=== PATIENT | female | born 1965 | race Caucasian/White ===

== ENCOUNTER 2023-01-19 13:02 | Outpatient (AMB) | payer OTHER, SELFPAY ==
--- NOTE | 2023-01-19 13:06 | A.OFFVIS_ITS ---
Intake Vital Signs 01/19/23 13:07 Height 5 ft 5 in Weight 145 lb BMI 24.1 BP 135/85 Blood Pressure Location Lt brachial Position Sitting Respiration 14 Pulse 101 H Pulse Source Pulse Oximeter Intake Visit Reasons: RIGHT SHOULDER PAIN Intake Note: Pt has been doing PT since October with some relief. She had a shoulder xray at [facility], will try to obtain Allergies No Known Allergies Allergy (Verified 01/19/23 13:08) Medication List - Last Reconciled 01/19/23 by Yanelis Newman LPN citalopram 20 mg PO DAILY clonazepam 0.5 mg PO BID PRN gabapentin 600 mg PO BID methocarbamol 750 - 1,500 mg PO BID PRN HPI RIGHT SHOULDER PAIN HPI Details Patient is a 57 years old female presents today for initial evaluation right shoulder and periscapular pain. Denies any past or recent trauma, injury or falls. 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 She has modified her work ergonomics and has utilized sitting and standing desk, completed physical and chiropractic courses, acupunture with cupping, massage, TENS unit (in remote past), gabapentin, methocarbamol without significant improvement in her symptoms. She is right side sleeper, reports waking up in the morning with paresthesias, cold and numb sensations in her right upper extremity which self-resolves with stretches and arm roller exercises. Pain interferes with her daily activities and functions and is worst while working on compute with pain intensity at 9/10 and average daily pain intensity at 7/10. Patient reports she does not have pain while mowing lawn or exercising. She had cervical and right shoulder xray at [facility] which showed cervical degenerative disc disease and arthritis. These reports are not available today for review. She is currently at physical therapy with mild symptom improvement in shoulder area but is interested to undergo interventional treatments for right periscapular pain. Location Right shoulder pain, periscapular and scapula areas Duration Chronic since early Characteristics of symptom or complaint Aching, tinlging, numb (RUE), Aggravating or associated factors Movements, working on computer Relieving factors Accupunture and cupping therapy 2x/weeks, TENS unit in past Treatment Currently at PT, Chiropractor Review of Systems Const All systems reviewed & are unremarkable except as noted in HPI and below Denies body aches, Denies chills, Denies fever(s), Denies frequent falls, Denies headache(s), Denies malaise, Denies night sweats and Denies weight loss ENT Denies headache(s) and Reports neck pain Musc Reports as per HPI, Denies back pain, Reports arthralgias, Denies limited range of motion, Reports neck pain, Reports numbness, Reports radiating pain into limb, Reports stiffness and Reports tingling Neuro Denies frequent falls, Denies headache(s), Reports numbness and Reports tingling Physical Exam Vital Signs: Last Vital Signs Pulse 101 H 01/19/23 13:07 Resp 14 01/19/23 13:07 BP 135/85 01/19/23 13:07 BMI result Body Mass Index 24.1 General: Appears afebrile. Alert and oriented. Mood and affect appropriate. Follows and participates in conversation appropriately. Respiratory effort is unlabored. No cough. Able to transition from sit to stand unassisted. Ambulates with bilaterally normal heel strike and toe off. Neck Neck: Yes normal visual inspection, Yes full ROM, Yes no lymphadenopathy, Yes supple, No anterior neck swelling, No torticollis, Yes no JVD, No prominent supraclavicular fat pad and No prominent dorsocervical fat pad Back/Spine/Pelvis Cervical Spine: cervical ROM normal, No collar present, cervical muscular tenderness, pain with cervical ROM, No Cervical spine tenderness and No step off deformity Thoracic/Lumbar Spine: thoracic and lumbar spine normal to inspection, No Thoracic/lumbar spine scar(s), No kyphosis, paraspinal muscle tenderness on the right (periscapular and midscapular areas) in the mid thoracic, No Thoracic/lumbar scoliosis, No thoracic spinal tenderness and No lumbar spinal tenderness Extrem General: Yes capillary refill normal, Yes no clubbing, cyanosis or edema and Yes no calf tenderness Right upper extremity: shoulder/upper arm Details: normal to inspection, tenderness and normal ROM; no swelling, no ecchymosis, no crepitus and no unusual warmth Assessment & Plan Assessment & Plan (1) Degenerative disc disease, cervical: Code(s): M50.30 - Other cervical disc degeneration, unspecified cervical region (2) Muscle spasm: Code(s): M62.838 - Other muscle spasm (3) Cervical spondylosis: Code(s): M47.812 - Spondylosis without myelopathy or radiculopathy, cervical region (4) Chronic periscapular pain: Code(s): M25.519 - Pain in unspecified shoulder; G89.29 - Other chronic pain (5) Right shoulder pain: Code(s): M25.511 - Pain in right shoulder Plan 1. Will send request to [facility] for previous imaging of cervical spine and right shoulder for review prior to treatments. 2. Script for TENS unit provided at patient's request via [employer]. Informational pamphlets given to patient. 3. Tentatively plan for Diagnostic Right C6-C7-T1 MBB nerve blocks with local and fluoroscopy for mid scapular pain. Expectations, risks and benefits were reviewed. Patient is aware she will be contacted to schedule this procedure. 4. Continue PT and HEP. Encouraged good posture, adequate hydration, alternating between sitting and standing desk at work, stretching exercises and stress reduction. All questions were answered and patient is in agreement of plan. Follow-up after injections and sooner as needed. Coding Level of Care Code New Pt Level 4 (61860) Diagnoses Degenerative disc disease, cervical M50.30 Muscle spasm M62.838 Cervical spondylosis M47.812 Chronic periscapular pain M25.519; G89.29 Right shoulder pain M25.511
[2023-01-19 13:07] VITALS: BP 135/85; PULSE 101; RESP 14; BMI 24.1
== END 2023-01-19 13:39 | disposition home or self-care (01) ==
PROVIDERS: PCP Internal Medicine; Visit Provider Nurse Practitioner Family
DX: M50.30 Other cervical disc degeneration, unspecified cervical region (principal); M62.838 Other muscle spasm; M47.812 Spondylosis without myelopathy or radiculopathy, cervical region; M25.519 Pain in unspecified shoulder; G89.29 Other chronic pain; M25.511 Pain in right shoulder
CPT/HCPCS: 99204

== ENCOUNTER → 2023-01-19 13:02 | Outpatient (BNVA) | payer OTHER, SELFPAY | PROVIDERS: PCP Internal Medicine; Visit Provider Nurse Practitioner Family ==

== ENCOUNTER 2023-03-24 05:55 | Outpatient (REF) | payer OTHER, SELFPAY ==
--- NOTE | ~2023-03-24 | FL_ITS ---
EXAMINATION: XR FLUOROSCOPY WITH IMAGES CLINICAL INFORMATION: Spondylosis without myelopathy or radiculopathy, cervical region. COMPARISON: None available. TECHNIQUE: Fluoroscopy Supervised By: Dr. Darren Oliva. Fluoroscopy Time: 0.3 minutes. Cumulative Dose: 4.88 mGy. DAP: 0.485 Gycm2. Images: 4. FINDINGS: Images demonstrate needle placement and contrast injection over 3 consecutive right posterior lateral cervical vertebral bodies FL/FL guidance in treatment room IMPRESSION: Fluoroscopy guidance for pain management procedure
== END 2023-03-24 05:56 | disposition home or self-care (01) ==
LOC: CF 05:55
PROVIDERS: Visit Provider Internal Medicine
DX: M47.812 Spondylosis without myelopathy or radiculopathy, cervical region (principal)
CPT/HCPCS: 64490; 64491

== ENCOUNTER 2023-03-24 07:55 | Outpatient (AMB) | payer OTHER, SELFPAY ==
[2023-03-24 08:02] VITALS: BP 122/78; PULSE 88; RESP 14; O2SAT 99
--- NOTE | 2023-03-24 08:02 | A.OFFVIS_ITS ---
Intake Vital Signs 03/24/23 08:02 03/24/23 09:02 BP 122/78 138/70 Blood Pressure Location Rt brachial Rt brachial Position Sitting Sitting Respiration 14 14 Pulse 88 88 Pulse Source Pulse Oximeter Pulse Oximeter Pulse Oximetry (%) 99 99 Oxygen Delivery Method Room Air Room Air Intake Visit Reasons: Right Dx C6-C7-T1 MBB Allergies No Known Allergies Allergy (Verified 03/24/23 08:03) HPI Right Dx C6-C7-T1 MBB HPI Details Patient presents for scheduled procedure. Denies any recent cough, cold, infection, fever or other significant changes in medical history since last office visit. Physical Exam Vital Signs: Last Vital Signs Pulse 88 03/24/23 08:02 Resp 14 03/24/23 08:02 BP 122/78 03/24/23 08:02 Pulse Ox 99 03/24/23 08:02 Oxygen Delivery Method Room Air 03/24/23 08:02 Office Procedures Cervical/Thoracic Facet Inj Details: Diagnostic Cervical Medial Branch Block, Right C5, C6, C7 medial branches After obtaining written consent, pre-procedure blood pressure and pulse were recorded and are in the nursing record for review. The patient was placed in a p elton position. The respective cervical area was prepped with chloraprep and draped in sterile fashion. The skin over the target medial branch nerves was anesthetized with 0.5% lidocaine. A 22 gauge 3.5 inch needle was inserted into the target medial branch nerve under fluoroscopic guidance under AP and lateral views for the C5 and C6 branches. AP and MIKEY views were utilized for the C7 branch. No paresthesias were elicited with needle placement and aspiration was negative for blood and CSF. Next, 0.2cc of omnipaque 180 was injected to verify positioning. Next 0.5 ml 0.5% ropivicaine was injected (0.5 cc total per level). The skin was cleansed and a sterile bandage was applied. Following the procedure the patient's vital signs were stable. The patient tolerated the procedure well and no complications were encountered. Following the procedure the patient's vital signs were stable. The patient was discharged home in good condition with post-procedural instructions. Time Out: Immediately prior to the procedure, the following was verbally confirmed that there is a signed consent form and that the correct patient, planned procedure, site and side are consistent with documentation and that necessary equipment and/or blood products are available prior to the start of the case. Complications: none EBL: <5 cc 12659 - second level, with Fluoroscopy Procedure code (CPT) selection complete Assessment & Plan Assessment & Plan (1) Cervical spondylosis: Code(s): M47.812 - Spondylosis without myelopathy or radiculopathy, cervical region Plan Patient is status post right C5, C6, C7 diagnostic MBBs. Patient tolerated procedure well and was discharged home in stable condition with discharge instructions. All questions were answered. We will follow-up via telephone or in clinic to assess response to therapy. A follow-up appointment was made during today's visit. If no response to diagnostic injection, consider C-spine MRI and T-spine Xray. Orders: Orders FL guidance in treatment room Today M47.812 - Spondylosis without myelopathy or radiculopathy, cervical region Coding Level of Care Code Procedure Only Diagnoses Cervical spondylosis M47.812 CPT Codes Facet Injection Cervical/Thoracic - CPT: 77827 - second level, with Fluoroscopy ([id number])
[2023-03-24 09:02] VITALS: BP 138/70; PULSE 88; RESP 14; O2SAT 99
== END 2023-03-24 08:59 | disposition home or self-care (01) ==
LOC: HO.PMCPRC 07:55
PROVIDERS: PCP Internal Medicine; Visit Provider Internal Medicine
DX: M47.812 Spondylosis without myelopathy or radiculopathy, cervical region (principal)
CPT/HCPCS: 64490; 64491

== ENCOUNTER 2023-03-26 08:33 | Outpatient (AMB) | payer OTHER, SELFPAY ==
--- NOTE | 2023-03-26 08:34 | A.OFFVIS_ITS ---
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 Oliva. Patient reports 100% ongoing pain relief since procedure with significant improvement in her movements, functioning, sleep, work, mood and quality of life. Patient reports having a very good day yesterday and content for not having pain, especially during her work on computer. Patient is interested to proceed with therapeutic cervical medial branch blocks as next steps and consider Sprint PNS trial as a back up option. She is not interested in RFA at this time. Denies any recent cough, cold, infection, fever, rash, swelling, red ness, injection site tenderness, erythema or bleeding or other significant changes in medical history since last office visit. Past Procedures: 03/24/23: Right Diagnostic C5-C6-C7 MBBs -100% pain relief for 36 hours PRIOR: Patient is a 57 years old female presents today for initial evaluation right shoulder and periscapular pain. Denies any past or recent trauma, injury or falls. 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 She has modified her work ergonomics and has utilized sitting and standing desk, completed physical and chiropractic courses, acupunture with cupping, massage, TENS unit (in remote past), gabapentin, methocarbamol without significant improvement in her symptoms. She is right side sleeper, reports waking up in the morning with paresthesias, cold and numb sensations in her right upper extremity which self-resolves with stretches and arm roller exercises. Pain interferes with her daily activities and functions and is worst while working on compute with pain intensity at 9/10 and average daily pain intensity at 7/10. Patient reports she does not have pain while mowing lawn or exercising. She had cervical and right shoulder xray at [facility] which showed cervical degenerative disc disease and arthritis. These reports are not available today for review. She is currently at physical therapy with mild symptom improvement in shoulder area but is interested to undergo interventional treatments for right periscapular pain. Location Right shoulder pain, periscapular and scapula areas Duration Chronic since early Characteristics of symptom or complaint Aching, tingling, numb (RUE), Aggravating or associated factors Movements, working on computer Relieving factors Acupuncture and cupping therapy 2x/weeks, TENS unit in past Treatment Currently at PT, Chiropractor Review of Systems Const All systems reviewed & are unremarkable except as noted in HPI and below Physical Exam General: Appears afebrile. Alert and oriented. Mood and affect appropriate. Follows and participates in conversation appropriately. Respiratory effort is unlabored. No cough. Able to transition from sit to stand unassisted. Ambulates with bilaterally normal heel strike and toe off. Neck Neck: Yes normal visual inspection, Yes full ROM, Yes no lymphadenopathy, Yes supple, No anterior neck swelling and Yes no JVD Results Reviewed Results Reviewed: No imaging reports are available for review. Assessment & Plan Assessment & Plan (1) Cervical spondylosis: Code(s): M47.812 - Spondylosis without myelopathy or radiculopathy, cervical region (2) Degenerative disc disease, cervical: Code(s): M50.30 - Other cervical disc degeneration, unspecified cervical region Plan Patient is status post right C5, C6, C7 diagnostic MBBs on 03/24/23 with ongoing 100% pain relief with improved functioning, sleep, work, mood and quality of life. Patient is interested to proceed with therapeutic cervical medial branch blocks as next steps and consider Sprint PNS trial as a back up option. She is not interested in RFA at this time. Schedule Right Therapeutic C5-C6-C7 MBB with local and fluoroscopy and oral Ativan per patient's request. Expectations, risks and benefits were reviewed. Patient is aware she will be contacted to schedule this procedure. All q uestions were answered and the patient is in agreement of plan. Follow-up after injections and sooner as needed. Coding Level of Care Code Est Pt Level 3 (01540) Diagnoses Cervical spondylosis M47.812 Degenerative disc disease, cervical M50.30
[2023-03-26 08:37] VITALS: BP 142/82; PULSE 91; O2SAT 97; BMI 24.1
== END 2023-03-26 08:43 | disposition home or self-care (01) ==
PROVIDERS: PCP Internal Medicine; Visit Provider Nurse Practitioner Family
DX: M47.812 Spondylosis without myelopathy or radiculopathy, cervical region (principal); M50.30 Other cervical disc degeneration, unspecified cervical region
CPT/HCPCS: 99213

== ENCOUNTER → 2023-03-26 08:33 | Outpatient (BNVA) | payer OTHER, SELFPAY | PROVIDERS: PCP Internal Medicine; Visit Provider Nurse Practitioner Family ==

== ENCOUNTER 2023-05-05 05:58 | Outpatient (REF) | payer OTHER, SELFPAY ==
--- NOTE | ~2023-05-05 | FL_ITS ---
EXAMINATION: XR FLUOROSCOPY WITH IMAGES CLINICAL INFORMATION: Spondylosis without posterior radiculopathy, cervical region. COMPARISON: None available. TECHNIQUE: Fluoroscopy Supervised By: Dr. Darren Oliva. Fluoroscopy Time: 0.1 minute. Cumulative Dose: 2.09 mGy. DAP: 0.211 Gycm2. Images: 2. FINDINGS: Images demonstrate needle placement and contrast injection adjacent to the right lateral C3, C4 and C5 vertebrae FL/FL guidance in treatment room IMPRESSION: Fluoroscopy guidance for pain management procedure
== END 2023-05-05 05:59 | disposition home or self-care (01) ==
LOC: CF 05:58
PROVIDERS: Visit Provider Internal Medicine
DX: M47.812 Spondylosis without myelopathy or radiculopathy, cervical region (principal)
CPT/HCPCS: 64490; 64491; J1100; J2795; Q9967

== ENCOUNTER 2023-05-05 08:27 | Outpatient (AMB) | payer OTHER, SELFPAY ==
[2023-05-05 08:50] VITALS: BP 122/68; PULSE 60; O2SAT 100; BMI 24.1
--- NOTE | 2023-05-05 08:50 | MHC.OFFVIS ---
Intake Vital Signs 05/05/23 08:50 05/05/23 09:29 Height 5 ft 5 in 5 ft 5 in Weight 145 lb 145 lb BMI 24.1 24.1 BP 122/68 124/70 Blood Pressure Location Lt brachial Lt brachial Position Sitting Sitting Respiration 16 Pulse 60 101 H Pulse Source Pulse Oximeter Pulse Oximeter Pulse Oximetry (%) 100 99 Oxygen Delivery Method Room Air Room Air Comment Pre-Op Post-op Intake Visit Reasons: right theraputic C5-C6-C7 MBB Allergies No Known Allergies Allergy (Verified 03/26/23 08:37) HPI right theraputic C5-C6-C7 MBB HPI Details Patient presents for scheduled procedure. Denies any recent cough, cold, infection, fever or other significant changes in medical history since last office visit. Physical Exam Vital Signs: Last Vital Signs Pulse 101 H 05/05/23 09:29 Resp 16 05/05/23 09:29 BP 124/70 05/05/23 09:29 Pulse Ox 99 05/05/23 09:29 Oxygen Delivery Method Room Air 05/05/23 09:29 BMI result Body Mass Index 24.1 Office Procedures Cervical/Thoracic Facet Inj Details: Therapeutic Cervical Medial Branch Block, Right C4, C5, C6 medial branches After obtaining written consent, pre-procedure blood pressure and pulse were recorded and are in the nursing record for review. The patient was placed in a lateral position. The respective cervical area was prepped with chloraprep and draped in sterile fashion. The skin over the target medial branch nerves was anesthetized with 0.5% lidocaine. A 25 gauge 1.5 inch needle was inserted into the target medial branch nerve under fluoroscopic guidance. No paresthesias were elicited with needle placement and aspiration was negative for blood and CSF. Next, 0.2cc of omnipaque 180 was injected to verify positioning. Next 0.5 ml 0.5% ropivicaine mixed with 3.3 mg Dexamthesone was injected (0.5 cc total per level). The identical procedure was performed at the remaining levels. The skin was cleansed and a sterile bandage was applied. Following the procedure the patient's vital signs were stable. The patient tolerated the procedure well and no complications were encountered. Following the procedure the patient's vital signs were stable. The patient was discharged home in good condition with post-procedural instructions. Time Out: Immediately prior to the procedure, the following was verbally confirmed that there is a signed consent form and that the correct patient, planned procedure, site and side are consistent with documentation and that necessary equipment and/or blood products are available prior to the start of the case. Complications: none EBL: <5 cc 98722 - second level, with Fluoroscopy Procedure code (CPT) selection complete Assessment & Plan Assessment & Plan (1) Cervical spondylosis: Code(s): M47.812 - Spondylosis without myelopathy or radiculopathy, cervical region Plan Patient is status post C4, C5, C6 therapeutic MBBs. Patient tolerated procedure well and was discharged home in stable condition with discharge instructions. All questions were answered. We will follow-up via telephone or in clinic to assess response to therapy. A follow-up appointment was made during today's visit. Orders: Orders FL guidance in treatment room Today M47.812 - Spondylosis without myelopathy or radiculopathy, cervical region Coding Level of Care Code Procedure Only Diagnoses Cervical spondylosis M47.812 CPT Codes Facet Injection Cervical/Thoracic - CPT: 93971 - second level, with Fluoroscopy ([id number])
[2023-05-05 09:29] VITALS: BP 124/70; PULSE 101; RESP 16; O2SAT 99; BMI 24.1
== END 2023-05-05 09:16 | disposition home or self-care (01) ==
LOC: HO.PMCPRC 08:27
PROVIDERS: PCP Internal Medicine; Visit Provider Internal Medicine
DX: M47.812 Spondylosis without myelopathy or radiculopathy, cervical region (principal)
CPT/HCPCS: 64490; 64491

== ENCOUNTER 2023-06-22 11:22 | Outpatient (AMB) | payer OTHER, SELFPAY ==
--- NOTE | 2023-06-22 11:25 | A.OFFVIS_ITS ---
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 Oliva. Patient reports 90% ongoing pain relief since procedure with significant improvement in her movements, functioning, sleep, work, mood and quality of life. She is considering Sprint PNS trial in September or October and will notify our office. Denies any recent cough, cold, infection, fever, rash, swelling, redness, injection site tenderness, erythema or bleeding or other significant changes in medical history since last office visit. Past Procedures: 05/05/23: Right Therapeutic C5-C6-C7 MBB s-90% ongoing pain relief 03/24/23: Right Diagnostic C5-C6-C7 MBBs -100% pain relief for 36 hours PRIOR: Patient is a 57 years old female presents today for initial evaluation right shoulder and periscapular pain. Denies any past or recent trauma, injury or falls. 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 She has modified her work ergonomics and has utilized sitting and standing desk, completed physical and chiropractic courses, acupunture with cupping, massage, TENS unit (in remote past), gabapentin, methocarbamol without significant improvement in her symptoms. She is right side sleeper, reports waking up in the morning with paresthesias, cold and numb sensations in her right upper extremity which self-resolves with stretches and arm roller exercises. Pain interferes with her daily activities and functions and is worst while working on compute with pain intensity at 9/10 and average daily pain intensity at 7/10. Patient reports she does not have pain while mowing lawn or exercising. She had cervical and right shoulder xray at [facility] which showed cervical degenerative disc disease and arthritis. These reports are not available today for review. She is currently at physical therapy with mild symptom improvement in shoulder area but is interested to undergo interventional treatments for right periscapular pain. Location Right shoulder pain, periscapular and scapula areas Duration Chronic since early Characteristics of symptom or complaint Aching, tingling, numb (RUE), Aggravating or associated factors Movements, working on computer Relieving factors Acupuncture and cupping therapy 2x/weeks, TENS unit in past Treatment Currently at PT, Chiropractor [facility] Medical History Malignant tumor of uterus Right shoulder pain Cervical spondylosis Degenerative disc disease, cervical Surgical History H/O total hysterectomy Review of Systems Const All systems reviewed & are unremarkable except as noted in HPI and below Physical Exam Vital Signs: Last Vital Signs Pulse 95 06/22/23 11:27 BP 147/81 H 06/22/23 11:27 Pulse Ox 96 06/22/23 11:27 Oxygen Delivery Method Room Air 06/22/23 11:27 BMI result Body Mass Index 23.3 General: Appears afebrile. Alert and oriented. Mood and affect appropriate. Follows and participates in conversation appropriately. Respiratory effort is unlabored. No cough. Able to transition from sit to stand unassisted. Ambulates with bilaterally normal heel strike and toe off. Neck Neck: Yes normal visual inspection, Yes full ROM, Yes no lymphadenopathy, Yes supple, No anterior neck swelling and Yes no JVD Back/Spine/Pelvis Cervical Spine: cervical ROM normal, cervical muscular tenderness, No Cervical spine tenderness and No step off deformity Thoracic/Lumbar Spine: thoraco-lumbar ROM normal, No thoracic spinal tenderness and No lumbar spinal tenderness Results Reviewed Results Reviewed: No imaging reports are available for review. Assessment & Plan Assessment & Plan (1) Cervical spondylosis: Code(s): M47.812 - Spondylosis without myelopathy or radiculopathy, cervical region (2) Degenerative disc disease, cervical: Code(s): M50.30 - Other cervical disc degeneration, unspecified cervical region Plan Patient status post C4, C5, C6 therapeutic MBB on 05/05/23 with good results, improved cervical spine ROM, functioning and sleep. Continue daily stretching exercises, good posture, adequate hydration, topical applications, NSAIDs, heat/ice therapy. Consider acupuncture with acupressure and cupping therapies and aqua therapy. Patient is considering Sprint PNS trial in September or October and will notify our office. All questions and concerns have been answered and patient agreed with the plan. Follow up as needed. Coding Level of Care Code Est Pt Level 3 (49879) Diagnoses Cervical spondylosis M47.812 Degenerative disc disease, cervical M50.30
[2023-06-22 11:27] VITALS: BP 147/81; PULSE 95; O2SAT 96; BMI 23.3
== END 2023-06-22 11:47 | disposition home or self-care (01) ==
PROVIDERS: PCP Internal Medicine; Visit Provider Nurse Practitioner Family
DX: M47.812 Spondylosis without myelopathy or radiculopathy, cervical region (principal); M50.30 Other cervical disc degeneration, unspecified cervical region
CPT/HCPCS: 99213

== ENCOUNTER → 2023-06-22 11:22 | Outpatient (BNVA) | payer OTHER, SELFPAY | PROVIDERS: PCP Internal Medicine; Visit Provider Nurse Practitioner Family ==

== ENCOUNTER 2023-08-24 14:27 | Outpatient (AMB) | payer OTHER, SELFPAY ==
--- NOTE | 2023-08-24 14:29 | MHC.OFFVIS ---
Intake Vital Signs 08/24/23 14:35 08/24/23 14:50 08/24/23 15:10 Height 5 ft 5 in Weight 140 lb BMI 23.3 BP 192/111 H 178/105 H 140/80 H Blood Pressure Location Rt brachial Rt brachial Lt brachial Position Sitting Sitting Sitting Respiration 16 Pulse 95 96 Pulse Source Pulse Oximeter Pulse Oximeter Pulse Oximetry (%) 98 Oxygen Delivery Method Room Air Comment Manual bp Intake Visit Reasons: discuss sprint PNS trial Intake Note: Pain today 01/21 Bush Regenerator Required: No Accompanied by: Self / Same As Patient Allergies No Known Allergies Allergy (Verified 08/24/23 14:35) HPI HPI Comments History of Present Illness Details Patient presents today to discuss Sprint peripheral nerve stimulation procedure to address chronic right-sided neck, shoulder and periscapular pain. Patient reports radicular pain into her right upper extremity with cold sensation, weakness, numbness and tingling. She reports gabapentin is not effective. She is right-hand dominant. 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 Patient reports she completed EMG and nerve conduction studies at [facility] and was told it was normal. Unfortunately, EMG/NVC report is not available for review today. Patient reports therapeutic right-sided neck injections effects have faded and her pain is back to baseline which she rates at 10. Denies any recent cough, cold, infection, fever, rash, swelling, redness, injection site tenderness, erythema or bleeding or other significant changes in medical history since last office visit. Past Procedures: 05/05/23: Right Therapeutic C5-C6-C7 MBBs-90% ongoing pain relief 03/24/23: Right Diagnostic C5-C6-C7 MBBs-100% pain relief for 36 hours PRIOR: Patient is a 57 years old female presents today for initial evaluation right shoulder and periscapular pain. Denies any past or recent trauma, injury or falls. 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 She has modified her work ergonomics and has utilized sitting and standing desk, completed physical and chiropractic courses, acupunture with cupping, massage, TENS unit (in remote past), gabapentin, methocarbamol without significant improvement in her symptoms. She is right side sleeper, reports waking up in the morning with paresthesias, cold and numb sensations in her right upper extremity which self-resolves with stretches and arm roller exercises. Pain interferes with her daily activities and functions and is worst while working on compute with pain intensity at 9/10 and average daily pain intensity at 7/10. Patient reports she does not have pain while mowing lawn or exercising. She had cervical and right shoulder xray at [facility] which showed cervical degenerative disc disease and arthritis. These reports are not available today for review. She is currently at physical therapy with mild symptom improvement in shoulder area but is interested to undergo interventional treatments for right periscapular pain. Location Right shoulder pain, periscapular and scapula areas Duration Chronic since early Characteristics of symptom or complaint Aching, tingling, numb (RUE), Aggravating or associated factors Movements, working on computer Relieving factors Acupuncture and cupping therapy 2x/weeks, TENS unit in past Treatment Currently at PT, Chiropractor [facility] Medical History Malignant tumor of uterus Right shoulder pain Cervical spondylosis Degenerative disc disease, cervical Surgical History H/O total hysterectomy Review of Systems Const All systems reviewed & are unremarkable except as noted in HPI and below Physical Exam Vital Signs: Last Vital Signs Pulse 96 08/24/23 14:50 Resp 16 08/24/23 14:50 BP 140/80 H 08/24/23 15:10 Pulse Ox 98 08/24/23 14:35 Oxygen Delivery Method Room Air 08/24/23 14:35 BMI result Body Mass Index 23.3 General: Appears afebrile. Alert and oriented. Mood and affect appropriate. Follows and participates in conversation appropriately. Respiratory effort is unlabored. No cough. Able to transition from sit to stand unassisted. Ambulates with bilaterally normal heel strike and toe off. Neck Neck: Yes normal visual inspection, Yes no lymphadenopathy, Yes supple, No anterior neck swelling, No torticollis, Yes no JVD, No prominent supraclavicular fat pad and No prominent dorsocervical fat pad Back/Spine/Pelvis Cervical Spine: cervical ROM normal, cervical muscular tenderness, pain with cervical ROM, cervical spasm (Right), No Cervical spine tenderness and No step off deformity Thoracic/Lumbar Spine: thoraco-lumbar ROM normal, No thoracic spinal tenderness and No lumbar spinal tenderness Results Reviewed Results Reviewed: No imaging reports are available for review. Assessment & Plan Assessment & Plan (1) Chronic periscapular pain: Code(s): M25.519 - Pain in unspecified shoulder; G89.29 - Other chronic pain (2) Degenerative disc disease, cervical: Code(s): M50.30 - Other cervical disc degeneration, unspecified cervical region (3) Cervical radiculopathy: Code(s): M54.12 - Radiculopathy, cervical region (4) Cervical spondylosis: Code(s): M47.812 - Spondylosis without myelopathy or radiculopathy, cervical region Plan Medical release request sent to [facility] for EMG/NVC report. We will proceed with cervical spine MRI to assess for neural integrity and compression. Discussed Sprint PNS procedure in greater detail with patient today. Informational brochure provided. Informed patient of potential behavioral evaluation prior to procedure per her insurance requirement. Continue daily stretching exercises, good posture, adequate hydration, topical applications, NSAIDs, heat/ice therapy. Consider ergonomic wrist rest mouth pad for work and home computer use. All questions and concerns have been answered and patient agreed with the plan. Follow up for MRI results and sooner as needed. Orders: Orders MR cervical spine wo con 08/24/23 G89.29 - Other chronic pain, M25.519 - Pain in unspecified shoulder, M50.30 - Other cervical disc degeneration, unspecified cervical region, M54.12 - Radiculopathy, cervical region Coding Level of Care Code Est Pt Level 4 (63311) Diagnoses Chronic periscapular pain M25.519; G89.29 Degenerative disc disease, cervical M50.30 Cervical radiculopathy M54.12 Cervical spondylosis M47.812
[2023-08-24 14:35] VITALS: BP 192/111; PULSE 95; O2SAT 98; BMI 23.3
[2023-08-24 14:50] VITALS: BP 178/105; PULSE 96; RESP 16
[2023-08-24 15:10] VITALS: BP 140/80
== END 2023-08-24 15:08 | disposition home or self-care (01) ==
PROVIDERS: PCP Internal Medicine; Visit Provider Nurse Practitioner Family
DX: M25.519 Pain in unspecified shoulder (principal); G89.29 Other chronic pain; M50.30 Other cervical disc degeneration, unspecified cervical region; M54.12 Radiculopathy, cervical region; M47.812 Spondylosis without myelopathy or radiculopathy, cervical region
CPT/HCPCS: 99214

== ENCOUNTER → 2023-08-24 14:27 | Outpatient (BNVA) | payer OTHER, SELFPAY | PROVIDERS: PCP Internal Medicine; Visit Provider Nurse Practitioner Family ==

== ENCOUNTER 2023-09-17 14:14 | Outpatient (AMB) | payer OTHER, SELFPAY ==
[2023-09-17 14:15] VITALS: BMI 23.3
--- NOTE | 2023-09-17 14:15 | A.OFFVIS_ITS ---
Intake Vital Signs 09/17/23 14:15 Height 5 ft 5 in Weight 140 lb BMI 23.3 Intake Visit Reasons: procedure discussion Allergies No Known Allergies Allergy (Verified 08/24/23 14:35) HPI HPI Comments History of Present Illness Details Patient presents today via telehealth encounter to discuss right shoulder and chronic periscapular pain. Patient continues to endorse limited work abilities due to constant pain in her right shoulder with radiation to her shoulder blade and right upper extremity with numbness and tingling. Right hand dominant. 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 Reports increasing pain during work day and worse by the evening. Rates pain at 7-8/10. Pain has been function limiting and resistant to conservative treatments. She had cervical and right shoulder xray at [facility] which showed cervical degenerative disc disease and arthritis. Patient had good response to diagnostic and therapeutic cervical medial branch blocks and denies any neck pain today. Denies any recent cough, cold, infection, fever, any significant changes in her medical history, medications or recent hospitalizations. PRIOR: Patient presents today to discuss Sprint peripheral nerve stimulation procedure to address chronic right-sided neck, shoulder and periscapular pain. Patient reports radicular pain into her right upper extremity with cold sensation, weakness, numbness and tingling. She reports gabapentin is not effective. She is right-hand dominant. 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 Patient reports she completed EMG and nerve conduction studies at [facility] and was told it was normal. Unfortunately, EMG/NVC report is not available for review today. Patient reports therapeutic right-sided neck injections effects have faded and her pain is back to baseline which she rates at 8/10. Denies any recent cough, cold, infection, fever, rash, swelling, redness, injection site tenderness, erythema or bleeding or other significant changes in medical history since last office visit. Past Procedures: 05/05/23: Right Therapeutic C5-C6-C7 MBB s-90% ongoing pain relief 03/24/23: Right Diagnostic C5-C6-C7 MBBs -100% pain relief for 36 hours PRIOR: Patient is a 57 years old female presents today for initial evaluation right shoulder and periscapular pain. Denies any past or recent trauma, injury or falls. 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 She has modified her work ergonomics and has utilized sitting and standing desk, completed physical and chiropractic courses, acupunture with cupping, massage, TENS unit (in remote past), gabapentin, methocarbamol without significant improvement in her symptoms. She is right side sleeper, reports waking up in the morning with paresthesias, cold and numb sensations in her right upper extremity which self-resolves with stretches and arm roller exercises. Pain interferes with her daily activities and functions and is worst while working on compute with pain intensity at 9/10 and average daily pain intensity at 7/10. Patient reports she does not have pain while mowing lawn or exercising. She had cervical and right shoulder xray at [facility] which showed cervical degenerative disc disease and arthritis. These reports are not available today for review. She is currently at physical therapy with mild symptom improvement in shoulder area but is interested to undergo interventional treatments for right periscapular pain. Location Right shoulder pain, periscapular and scapula areas Duration Chronic since early Characteristics of symptom or complaint Aching, tingling, numb (RUE), Aggravating or associated factors Movements, working on computer Relieving factors Acupuncture and cupping therapy 2x/weeks, TENS unit in past Treatment Currently at PT, Chiropractor [facility] Medical History Malignant tumor of uterus Right shoulder pain Cervical spondylosis Degenerative disc disease, cervical Surgical History H/O total hysterectomy Review of Systems Const All systems reviewed & are unremarkable except as noted in HPI and below ENT Reports Normal hearing present Neuro Reports Normal hearing present and Denies confusion Psych Denies confusion Physical Exam Vital Signs: BMI result Body Mass Index 23.3 Const General: cooperative, alert and awake; No confusion Orientation/consciousness: patient oriented x3 and No confusion Resp Effort & Inspection: able to speak in complete sentences, no audible wheezes and no cough Neuro General: patient oriented x3 and No confusion Cranial nerves: Yes Normal hearing present Cognition (Neuro): normal cognition Psych Mental Status: mental status grossly normal Speech and movement: Clear speech present Affect: normal affect Attitude: cooperative Thought process: Normal thought process present Thought content: Normal thought content present and No Depressive thoughts present Insight: Good insight present (Psych) Judgement: Good judgement present (Psych) Results Reviewed Results Reviewed: NEOS: Cervical and right shoulder xray -cervical degenerative disc disease and arthritis. Assessment & Plan Assessment & Plan (1) Chronic periscapular pain: Code(s): M25.519 - Pain in unspecified shoulder; G89.29 - Other chronic pain (2) Right shoulder pain: Code(s): M25.511 - Pain in right shoulder (3) Cervical spondylosis: Code(s): M47.812 - Spondylosis without myelopathy or radiculopathy, cervical region Plan Schedule Right Diagnostic Suprascapular Nerve Block with local and fluoroscopy and oral Ativan per patient's request. Expectations, risks and benefits were reviewed. Patient is aware she will be contacted to schedule this procedure. All questions were answered and the patient is in agreement of plan. Follow-up after injections and sooner as needed. I hereby testify that I spent 16 minutes in conversation with this patient as well as with planning and coordinating care for this patient and organizing this note. Orders: Orders XR shoulder RT min 2V Today G89.29 - Other chronic pain, M25.511 - Pain in right shoulder, M25.519 - Pain in unspecified shoulder Telehealth Telehealth Location of provider rendering services: practice address Location of patient: address on file Patient Identification confirmed using: Name, : Yes Telehealth method: voice only Patient verbally consented to treatment: Yes Patient verbally consented to billing insurance company: Yes Patient informed of any privacy concerns related to visit: Yes Minutes spent on Phone/Video with Pt.: 16 Coding Level of Care Code Tele Est Pt Level 4 (33820) Diagnoses Chronic periscapular pain M25.519; G89.29 Right shoulder pain M25.511 Cervical spondylosis M47.812
== END 2023-09-17 14:28 | disposition home or self-care (01) ==
LOC: HO.PMC 14:14
PROVIDERS: PCP Internal Medicine; Visit Provider Nurse Practitioner Family
DX: M25.519 Pain in unspecified shoulder (principal); G89.29 Other chronic pain; M25.511 Pain in right shoulder; M47.812 Spondylosis without myelopathy or radiculopathy, cervical region
CPT/HCPCS: 99214

== ENCOUNTER → 2023-09-17 14:14 | Outpatient (BNVA) | payer OTHER, SELFPAY | PROVIDERS: PCP Internal Medicine; Visit Provider Nurse Practitioner Family ==

== ENCOUNTER 2025-02-07 12:59 | Outpatient (REF) | payer OTHER, SELFPAY ==
--- OUTSIDE RECORDS SUMMARY | 2025-01-16 15:15 | XMS_ITS | Encounter Summary ---
Author Organization [facility] Address [address] [place] [address] Care Team Providers Care Hand Coke Drawer Name Role Phone Traci Castellanos MD Primary Care Provider [phone] Reason for Referral * Diagnostic Imaging (Routine) - Pending Review Specialty Diagnoses / Procedures Referred By Contact Referred To Contact Radiology, Vascular & Interventional Diagnoses Scapulothoracic bursitis of right shoulder Jas Falk MD [address] [place] [address] Phone: tel: fax: Referral ID Status Reason Start Date Expiration Date Visits Requested Visits Authorized [id number] Pending Review Consult 02/05/2025 02/06/2026 1 1 Scheduling Instructions [facility] Question Answer Requested procedure scapulothoracic bursal injection Laterality Right Requested modality guidance Fluoroscopy Reason for exam scapulothoracic bursitis Requested date 02/05/2025 Is the patient able to give consent? Yes Reason for Visit * Reason Comments Pain * Sports Medicine (Routine) - Pending Review Specialty Diagnoses / Procedures Referred By Fara riddle Referred To Contact Sports Medicine / Orthopedic Surgery Diagnoses Right shoulder pain, unspecified chronicity Mandeep Lara MD [address] [place] [address] Phone: tel: fax: Jas Falk MD [address] [place] [address] Phone: tel: fax: Referral ID Status Reason Start Date Expiration Date Visits Requested Visits Authorized [id number] Pending Review Consult 12/27/2024 12/28/2025 1 1 Encounter Details Date Type Department Care Team (Late st Contact Info) Description 01/16/2025 3:15 PM EDT Consult [facility] [address] [address] Jas Falk MD [address] [place] [address] Scapulothoracic bursitis of right shoulder (Primary Dx); Right shoulder pain, unspecified chronicity; Axillary nerve palsy Social History Tobacco Use Types Packs/Day Years Used Date Smoking Tobacco: Former Cigarettes Smokeless Tobacco: Never Comments Unknown Sex and Gender Information Value Date Recorded Sex Assigned at Female 01/15/2025 7:27 PM EDT Legal Sex Female 9:29 AM EDT Gender Identity Female 01/15/2025 7:27 PM EDT Sexual Orientation Heterosexual (straight) 01/15 7:27 PM EDT documented as of this encounter Progress Notes * Jas Falk MD - 01/16/2025 3:15 PM EDT Images from the original note were not included. [address] [facility] [address] [address] Encounter Date: 01/16/2025 Assessment & Plan 1. Right shoulder pain, unspecified chronicity - XR Shoulder 2+ views-Right 2. 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 We discussed options. She is going to try a course of physical therapy. I recommended fluoroscopic guided scapulothoracic bursal injection. This would be preferred for her. I will plan to see her back in 4 to 6 weeks following the injection to monitor symptom improvement or progression. The patient was informed of their diagnosis and treatment options. Medical decision-making involvedassessing all known acute and chronic conditions, the relationship of diagnoses, systemic effects, and acute exacerbations. External medical notes and results from diagnostic tests were reviewed whenapplicable. The risks and benefits of operative and non-operative treatment, including side effectsor complications of interventions (including medication and therapy) possible complications with and without treatment and when to proceed with options for surgery were reviewed. An independent historian was utilized if present, and communications were sent to listed providers. Any social or physica l determent of health, when relevant and recognized, was addressed. All necessary electronic precharting, postcharting and dictation was factored into clinical time documentation. History of Present Illness: Mechelle Martínez is a 59 y.o. female who presents today for Chief Complaint Patient presents with Right Shoulder - Pain She reports 10 years of right shoulder pain. It's gradually slowly gotten worse over time. She's done therapy in the past (quit a couple years ago, for a couple years straight). She denies any prior injections. She used antiinflammatories, tylenol. She localizes the shoulder pain in the posterior shoulder. She note clicking catching and popping. Physical Exam The patient appears to be alert and oriented. Affect is appropriate. Appears healthy in no acute distress. Well-nourished and well-developed. Pulse and respiratory rate are within normal limits. The cervical spine examined for masses, asymmetry, atrophy, range of motion. Spurling's maneuver negative Examination of the affected shoulder: No scapular dyskinesis on exam. She has palpable reproducible crepitance over the scapulothoracic bursa with any attempted range of motion. She has tenderness over the superior medial scapula. Normalactive and passive range of motion. No cuff strength deficiencies Deltoid fires strongly, axillary nerve sensation normal. Distal sensorimotor function intact.The hand is warm and appears well-perfused. Imaging / Data Review XR Shoulder 2+ views-Right Result Date: 01/16/2025 This exam was performed in office at [facility] and images reviewed by orthopedic provider. Any findings are documented within ambulatory encounter note on date of service. AP, axillary and scapular Y view digital radiographs of the affected shoulder were obtained and interpreted independently by myself in the office today. No significant degenerative changes of the glenohumeral joint. No proximal humeral migration. Axillary lateral demonstrates well centered humeral head. Minimal to no AC joint arthrosis. Patient Reported Outcomes ASES Pain Score: 10 ASES ADL Score: 41.67 ASES ADL Score: 51.67 Procedure Procedures Review of Systems Review of systems collected, received and pertinent positives and negatives documented in dictation. Review of Systems Constitutional: Negative for appetite change, chills, fever and unexpected weight change. HENT: Negative for sore throat. Eyes: Negative for redness. Respiratory: Negative for cough, shortness of breath and wheezing. Cardiovascular: Positive for leg swelling. Negative for palpitations. Gastrointestinal: Negative for abdominal pain, blood in stool, constipation, diarrhea, nausea and vomiting. Endocrine: Negative for cold intolerance, heat intolerance and polydipsia. Genitourinary: Negative for difficulty urinating, dysuria, flank pain, frequency, hematuria, vaginal bleeding and vaginal pain. Musculoskeletal: Positive for myalgias. Negative for arthralgias and back pain. Skin: Negative for rash and wound. Allergic/Immunologic: Negative for environmental allergies, food allergies and immunocompromised state. Neurological: Positive for numbness. Negative for dizziness, tremors, seizures and headaches. Hematological: Negative for adenopathy. Does not bruise/bleed easily. Psychiatric/Behavioral: Negative for behavioral problems and sleep disturbance. The patient is not nervous/anxious. Past Medical History Past Medical History: Diagnosis Date Anxiety Neuralgia Uterine cancer (HCC) Past Surgical History: Procedure Laterality Date HYSTERECTOMY No family history on file. Social History[1] Medication List Current Medications[2] Allergies Allergies[3] Please excuse minor typos and inconsistencies in this note you may find as it was dictated using voice recognition software. Jas Falk MD Shoulder& Elbow Surgeon [facility] Office phone: [phone] Email: [email or web address] [[email or web address]] Social History Tobacco Use Smoking status: Former Types: Cigarettes Smokeless tobacco: Never Vaping Use Vaping status: Never Used [2] Current Outpatient Medications: clonazePAM (KlonoPIN) 0.5 MG tablet, Take 0.5 mg by mouth 2 (two) times a day as needed. For Anxiety, Disp: , Rfl: doxycycline (VIBRAMYCIN) 100 MG capsule, Take 1 capsule (100 mg total) by mouth 2 (two) times a day., Disp: 20 capsule, Rfl: 0 fluticasone (FloNASE) 50 mcg/spray nasal spray, SPRAY 2 SPRAYS NARES, BOTH DAILY,X10 DAYS, Disp: , Rfl: gabapentin (NEURONTIN) 300 MG capsule, TAKE 1 TO 2 CAPSULE BY MOUTH TWICE A DAY, Disp: , Rfl: methocarbamol (ROBAXIN) 750 MG tablet, , Disp: , Rfl: [3] No Known Allergies documented in this encounter Miscellaneous Notes * Addendum Note - Caty Taveras - 01/16/2025 3:15 PM EDTAddended by: CATY TAVERAS on: 02/05/2025 03:15 PM Modules accepted: Orders documented in this encounter Plan of Treatment Scheduled Referrals Name Type Priority Associated Diagnoses Order Schedule Amb Referral to Interventional Radiology Outpatient Referral Routine Scapulothoracic bursitis of right shoulder Expected: 02/05/2025, Expires: 02/06/2026 documented as of this encounter Procedures Procedure Name Priority Date/Time Associated Diagnosis Comments XR SHOULDER 2+ VIEWS-RIGHT Routine 01/16/2025 3:41 PM EDT Right shoulder pain, unspecified chronicity documented in this encounter Results * XR Shoulder 2+ views-Right (01/16/2025 3:41 PM EDT) Narrative OA - 01/16/2025 3:42 PM EDT This exam was performed in office at [facility] and images reviewed by orthopedic provider. Any findings are documented within ambulatory encounter note on date of service. Jas Falk MD IMG DIAGNOSTIC IMAGING ORDERABL ES Final Result [facility] documented in this encounter Visit Diagnoses Diagnosis Scapulothoracic bursitis of right shoulder- Primary Right shoulder pain, unspecified chronicity Axillary nerve palsy documented in this encounter Care Teams Hand Coke Drawer Relationship Specialty Start Date End Date Traci Castellanos MD [address] [place] [address] PCP - General Internal Medicine 03/05/23 documented as of this encounter
--- NOTE | 2025-02-07 13:02 | EMG_ITS ---
Chief complaint: Woke up 1 morning in August with numbness in left 4th and 5th digits. Denied symptoms prior. Noted to have thinning of left FDI. Separately, patient has chronic right-sided neck/upper back pain with tingling on right arm. Reason for referral: Evaluate for ulnar neuropathy on left, versus radiculopathy Referred by: Dominik OLSEN Procedure done: Bilateral upper extremities NCS/EMG Precautions and/or limitations: None The limb temperature was monitored continuously and remained between 32-36 degrees C during the performance of the NCS. Ulnar motor NCS was performed with moderate elbow flexion between 70-90 degrees, with across-elbow distance of 10 cm. Nerve Conduction Studies Anti Sensory Summary Table ?Stim Site NR Onset (ms) Norm Onset (ms) Peak (ms) Norm Peak (ms) O-P Amp (?V) Norm O-P Amp Site1 Site2 Delta-0 (ms) Dist (cm) Ketan (m/s) Norm Ketan (m/s) Left DorsCutan Anti Sensory (Dorsum 5th MC) Wrist NR Wrist Dorsum 5th MC 0.0 Left Lat Ante Brach Cutan Anti Sensory (Lat Forearm) Lat Biceps ? 0.9 1.3 7.5 Lat Biceps Lat Forearm 0.9 0.0 Left Med Ante Brach Cutan Anti Sensory (Med Forearm) Elbow ? 0.5 0.7 35.7 Elbow Med Forearm 0.5 0.0 Left Median Anti Sensory (2nd Digit) Wrist ? 2.5 3.3 <3.6 27.3 >10 Wrist 2nd Digit 2.5 14.0 56 Right Median Anti Sensory (2nd Digit) Wrist ? 2.3 3.1 <3.6 21.0 >10 Wrist 2nd Digit 2.3 14.0 61 Left Radial Anti Sensory (Thumb) Forearm ? 2.0 2.6 <3.1 13.2 Forearm Thumb 2.0 0.0 Left Ulnar Anti Sensory (5th Digit) Wrist ? 2.0 2.5 <3.7 4.6 >15.0 Wrist 5th Digit 2.0 14.0 70 Right Ulnar Anti Sensory (5th Digit) Wrist ? 0.7 3.0 <3.7 29.0 >15.0 Wrist 5th Digit 0.7 14.0 200 Motor Summary Table ?Stim Site NR Onset (ms) Norm Onset (ms) O-P Amp (mV) Norm O-P Amp iAmp (mV) Amp (1st) (%) Site1 Site2 Delta-0 (ms) Dist (cm) Ketan (m/s) Norm Ketan (m/s) Left Median Motor (Abd Poll Brev) Wrist ? 3.5 <3.9 7.3 >4.5 8.7 100.0 Elbow Wrist 3.6 20.0 56 >45 Elbow ? 7.1 7.2 8.7 98.6 Right Median Motor (Abd Poll Brev) Wrist ? 3.0 <3.9 10.1 >4.5 11.7 100.0 Elbow Wrist 3.6 19.0 53 >45 Elbow ? 6.6 9.6 11.2 95.0 Left Ulnar Motor (Abd Dig Minimi) Wrist ? 2.8 <3.0 4.4 >5 5.1 100.0 B Elbow Wrist 3.8 17.5 46 >45 B Elbow ? 6.6 4.1 4.8 93.2 A Elbow B Elbow 2.2 10.0 45 >45 A Elbow ? 8.8 3.9 4.6 88.6 Right Ulnar Motor (Abd Dig Minimi) Wrist ? 2.4 <3.0 8.2 >5 10.4 100.0 B Elbow Wrist 3.4 17.0 50 >45 B Elbow ? 5.8 7.9 10.1 96.3 A Elbow B Elbow 1.1 10.0 91 >45 A Elbow ? 6.9 7.3 10.0 89.0 Left Ulnar (FDI) Motor (FDI) Wrist ? 3.4 <3.0 2.0 >5 2.4 100.0 B Elbow Wrist 3.5 17.5 50 >45 B Elbow ? 6.9 2.2 2.6 110.0 A Elbow B Elbow 2.2 10.0 45 >45 A Elbow ? 9.1 1.8 2.2 90.0 EMG ?Side Muscle Nerve Root Ins Act Fibs Psw Amp Dur Poly Recrt Int Pat Comment Right 1stDorInt Ulnar C8-T1 Nml Nml Nml Nml Nml 0 Nml Complete Right FlexCarpiUln Ulnar C8,T1 Nml Nml Nml Nml Nml 0 Nml Complete Right Biceps Musculocut C5-6 Nml Nml Nml Nml Nml 0 Nml Complete Right Triceps Radial C6-7-8 Nml Nml Nml Nml Nml 0 Nml Complete Right Deltoid Axillary C5-6 Nml Nml Nml Nml Nml 0 Nml Complete Left 1stDorInt Ulnar C8-T1 Incr 2+ 2+ Nml Nml 0 Nml Complete Left FlexCarpiUln Ulnar C8,T1 Nml Nml Nml Nml Nml 0 Nml Complete Left Biceps Musculocut C5-6 Nml Nml Nml Nml Nml 0 Nml Complete Left Triceps Radial C6-7-8 Nml Nml Nml Nml Nml 0 Nml Complete Left Deltoid Axillary C5-6 Nml Nml Nml Nml Nml 0 Nml Complete Paraspinal EMG ?Side Muscle Nerve Root Ins Act Fibs Psw Comment Right Cervical Upper Rami Nml Nml Nml Right Cervical Mid Rami Nml Nml Nml Right Cervical Lower Rami Nml Nml Nml Left Cervical Upper Rami Nml Nml Nml Left Cervical Mid Rami Nml Nml Nml Left Cervical Lower Rami Nml Nml Nml FINDINGS: Left ulnar motor nerve, recording at ADM, showed normal distal latency, small amplitude and normal conduction velocity. Recording at FDI, showed prolonged distal latencies, small amplitude, but only mild slowing of conduction velocity across elbow. Left ulnar sensory nerve showed small amplitudes. Left DUCS showed absent response. All other nerves tested were within normal. Concentric needle EMG was performed in selected muscles of the bilateral upper extremities and cervical paraspinals. Study revealed signs of electric abnormalities as shown in the table above. Left FDI showed increased insertional activity, PSWs and fibrillations. IMPRESSION: 1. This is an abnormal study. 2. There is electrodiagnostic evidence for left ulnar neuropathy at the elbow. 3. There is no electrodiagnostic evidence for median neuropathy, brachial plexopathy, or cervical radiculopathy. No ulnar neuropathy on right side. Thank you for your kind referral. Jazmin Mart MD, BRAYAN Board Certified, [place] Board [employer] and Rehabilitation (ABPMR) Board Certified, [place] Board of Electrodiagnostic Medicine (ABEM) CODIN 49016 x 2 MTDD
--- OUTSIDE RECORDS SUMMARY | 2025-02-07 13:25 | XMS_ITS | Clinical Summary ---
Author Organization [facility], Located Within [facility] Address [address] [place] [address] Care Team Providers Care Legislative Aide Name Role Phone Traci Castellanos MD Primary Care Provider [phone] Allergies No known active allergies Medications clonazePAM (KlonoPIN) 0.5 MG tablet Take 0.5 mg by mouth 2 (two) times a day as needed. For Anxiety 01/11/2023 Active fluticasone (FloNASE) 50 mcg/spray nasal spray SPRAY 2 SPRAYS NARES, BOTH DAILY,X10 DAYS 02/25/2023 Active gabapentin (NEURONTIN) 300 MG capsule TAKE 1 TO 2 CAPSULE BY MOUTH TWICE A DAY 02/22/2023 Active methocarbamol (ROBAXIN) 750 MG tablet 03/05/2023 Active doxycycline (VIBRAMYCIN) 100 MG capsuleIndicati ons:Bacterial sinusitis Take 1 capsule (100 mg total) by mouth 2 (two) times a day. 20 capsule 03/05/2023 Active Active Problems No known active problems Encounters Date Type Department Care Team Description 01/16/2025 3:25 PM EDT Ancillary Procedure [facility] [place] [address] 01/16/2025 3:15 [place] [address] Jas Falk MD Scapulothoracic bursitis of right shoulder (Primary Dx); Right shoulder pain, unspecified chronicity; Axillary nerve palsy 12/27/2024 9:00 [place] [address] Mandeep Lara MD Right shoulder pain, unspecified chronicity (Primary Dx); Bilateral carpal tunnel syndrome; Cubital tunnel syndrome, bilateral from Last 3 Months Social History Tobacco Use Types Packs/Day Years Used Date Smoking Tobacco: Former Cigarettes Smokeless Tobacco: Never Tobacco Cessation:Counseling Given: Not Answered Comments Unknown Sex and Gender Information Value Date Recorded Sex Assigned at Female 01/15/2025 7:27 PM EDT Legal Sex Female 9:29 AM EDT Gender Identity Female 01/15/2025 7:27 PM EDT Sexual Orientation Heterosexual (straight) 01/15 7:27 PM EDT Last Filed Vital Signs Vital Sign Reading Time Taken Comments Blood Pressure 137/89 03/05/2023 9:45 AM EDT Pulse 94 03/05/2023 9:45 AM EDT Temperature 36.7 C (98 F) 03/05/2023 9:45 AM EDT Respiratory Rate 16 03/05/2023 9:45 AM EDT Oxygen Saturation 98% 03/05/2023 9:45 AM EDT Inhaled Oxygen Concentration - - Weight 65.8 kg (145 lb) 03/05/2023 9:45 AM EDT Height 165.1 cm (5' 5 ) 03/05/2023 9:45 AM EDT Body Mass Index 24.13 03/05/2023 9:45 AM EDT Plan of Treatment Health Maintenance Due Date Last Done Comments Hepatitis C Virus Screening 1967 HIV Screening 1980 DTaP/Tdap/Td Vaccines (1 - Tdap) 1986 Hepatitis B Vaccines (1 of 3 - 19+ 3-dose series) 1986 Pap Smear (Ages 21-65) 1988 Mammogram 2007 Colonoscopy 2012 Pneumococcal Vaccines 50+ (1 of 1 - PCV) 2017 Zoster (Shingles) Vaccine (1 of 2) 2017 COVID-19 Vaccine (3 - 2023- season) 2024, 10/08/2020 Influenza Vaccine 01/12/2025 Procedures Procedure Name Priority Date/Time Associated Diagnosis Comments XR SHOULDER 2+ VIEWS-RIGHT Routine 01/16/2025 3:41 PM EDT Right shoulder pain, unspecified chronicity from Last 3 Months Results * XR Shoulder 2+ views-Right (01/16/2025 3:41 PM EDT) Narrative O[facility] - 01/16/2025 3:42 PM EDT This exam was performed in office at [facility] and images reviewed by orthopedic provider. Any findings are documented within ambulatory encounter note on date of service. us Jas Falk MD IMG DIAGNOSTIC IMAGING ORDERABL ES Final Result OA from Last 3 Months Insurance [employer] Care Teams Legislative Aide Relationship Specialty Start Date End Date Traci Castellanos MD [address] [place] [address] PCP - General Internal Medicine 03/05/23
--- OUTSIDE RECORDS SUMMARY | 2025-02-07 13:25 | XMS_ITS ---
Author Name [facility] Organization Unknown History of Medication Use Medication Directions Dispensed Refills Start Date End Date Stat us doxycycline (VIBRAMYCIN) 100 MG capsule Take 1 capsule (100 mg total) by mouth 2 (two) times a day. 03/05/2023 03/16/2023 active fluticasone (FloNASE) 50 mcg/spray nasal spray SPRAY 2 SPRAYS NARES, BOTH DAILY,X10 DAYS 02/25/2023 active gabapentin (NEURONTIN) 300 MG capsule TAKE 1 TO 2 CAPSULE BY MOUTH TWICE A DAY 02/22/2023 active clonazePAM (KlonoPIN) 0.5 MG tablet Take 0.5 mg by mouth 2 (two) times a day as needed. For Anxiety 01/11/2023 active Problems Problem Status Onset Date Problem Type Date of Resolution Source Scapulothoracic bursitis of right shoulder active [facility] Axillary nerve palsy active EncounterDiagnosisA ct CCT Right shoulder pain, unspecified chronicity active EncounterDiagnosisAct [facility] Encounters Encounter Type Encounter Reason Primary Diagnosis Location Date Ambulatory Ecal 01/16/2025 Ambulatory Bursitis of right shoulder Bursitis of right shoulder [facility] 01/16/2025 Ambulatory Pain [facility] 12/27/2024 Ambulatory Chronic sinusitis, unspecified Chronic sinusitis, unspecified [facility] 03/05/2023 Care Team Organization Name Specialty Phone Email Start Date End Da te [facility] 12/27/2024 [facility] 07/04/2023 [facility] 03/05/202303/05 [facility] 03/05/2023
--- OUTSIDE RECORDS SUMMARY | 2025-02-07 13:26 | XMS_ITS | Clinical Summary ---
Author Organization [facility] Facility Address [address] [place] [address] Care Team Providers Care Vehicle Delivery Worker Name Role Phone Traci Castellanos MD Primary Care Provider Social History Tobacco Use Types Packs/Day Years Used Date Smoking Tobacco: Never Assessed Comments Unknown Sex and Gender Information Value Date Recorded Sex Assigned at Not on file Legal Sex Female 1:39 PM EDT Gender Identity Not on file Sexual Orientation Not on file Plan of Treatment Upcoming Encounters Date Type Department Care Team (Late st Contact Info) Description 02/23/2025 11:15 AM EDT Office Visit [facility] [address] [phone] Mike Roman MD [address] [phone] Health Maintenance Due Date Last Done Comments Breast Cancer Screening 1967 Hepatitis B Vaccine (1 of 3 - 19+ 3-dose series) 05/06 Colorectal Cancer Screening: Annual FOBT 2016 Colorectal Cancer Screening: Colonoscopy 2016 Colorectal Cancer Screening: Sigmoidoscopy 2016 Pneumococcal Vaccine: 50+ Years (1 of 1 - PCV) 017 Influenza Vaccine (#1) 2025 Insurance [facility] Care Teams Vehicle Delivery Worker Relationship Specialty Start Date End Date Traci Castellanos MD [facility] [address] [place] [id number] PCP - General Internal Medicine 12/19/24
== END 2025-02-07 13:00 | disposition home or self-care (01) ==
LOC: HO.NEURO 12:59
PROVIDERS: PCP Physician Assistant
DX: R20.0 Anesthesia of skin (principal); R20.2 Paresthesia of skin
CPT/HCPCS: 95886; 95912

== ENCOUNTER → 2025-02-07 13:02 | Outpatient (BNV) | payer OTHER, SELFPAY | PROVIDERS: PCP Physician Assistant; Visit Provider Physical Medicine & Rehabilitation | DX: G62.89 Other specified polyneuropathies (principal) | CPT/HCPCS: 95886; 95912 ==

== ENCOUNTER 2025-03-08 14:22 | Outpatient (AMB) | payer OTHER, SELFPAY ==
--- NOTE | 2025-03-08 14:30 | A.OFFPC_ITS ---
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 She has a significant past medical history of chronic right periscapular pain, anxiety, mild depression, and elevated blood pressure readings CV: Blood pressure today in the office is 138/86. She states it seemed to always be elevated. Psych: Has a hx of anxiety and depression and states that a lot of it is related to her pain and not being able to work effectively. In 2011 her walked out and that was what started it. Msk: She has done pt, chiro, cupping, acupuncture and has followed with surgeons. She has left cubital tunnel syndrome. She states she is following with [facility] but they are unable to do any procedures due to her insurance. They request that she go to [facility] [facility]. She is following with [facility] for the chronic right periscapular pain. In the past she tried methocarbanol which was effective. cymbalta ineffective, gabapentin ineffective, ibuprofen upsets stomach. 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: s/p total hysterectomy- 2020 (hx of cancerous tumor), she states that the covid vaccine caused her frequent bleeding and then she was dx with the tumor Mammo: 2021 Bone density: never had Colonoscopy: 2021- due in 2031 [facility] Medical History (Updated 03/08/25 @ 15:08 by Jennifer Silva PA-C) Malignant tumor of uterus Right shoulder pain Cervical spondylosis Degenerative disc disease, cervical Surgical History History of bunionectomy H/O: hysterectomy History of bilateral salpingo-oophorectomy (BSO) H/O total hysterectomy Family History Mother Hyperlipidemia HTN (hypertension) Father HTN (hypertension) CAD (coronary artery disease) Son HTN (hypertension) Brother HTN (hypertension) Cancer of kidney Maternal Grandfather Cancer of colon Social History (Updated 03/08/25 @ 14:50 by Sybil Barton CMA) Housing: House Alcohol intake: current Patient Tobacco Use Status: Never used Tobacco e-Cigarette/Vaping Use: Never Used Second Hand Smoke Exposure: No service: No Current occupational status: unemployed Cognitive needs: No Hearing needs: No Vision needs: No Questionnaire PHQ-9 Over the last 2 weeks, how often have you been bothered by any of the following problems? 1. Little interest or pleasure in doing things: nearly every day 2. Feeling down, depressed, or hopeless: nearly every day 3. Trouble falling or staying asleep, or sleeping too much: not at all 4. Feeling tired or having little energy: several days 5. Poor appetite or overeating: nearly every day 6. Feeling bad about yourself - or that you are a failure or have let yourself or your family down: nearly every day 7. Trouble concentrating on things, such as reading the newspaper or watching television: more than half the days 8. Moving or speaking so slowly that other people could have noticed. Or the opposite - being so fidgety or restless that you have been moving around a lot more than usual: not at all 9. Thoughts that you would be better off or of hurting yourself in some way: not at all Total score: 15 Depression Screening Interpretation: Positive Depression Screening Follow-up: Existing condition and Follow-up Visit Requested Depression Screening Done: Yes 53204 - PHQ-9 Billing: Yes Source: Developed by Drs. Yeyo Atkins, Emilia Georges, Oh Fields and colleagues, with an educational armaan from [employer] Thrive Questionnaire Date Thrive assessed: 03/08/25 I am a: Patient What is your living situation today?: I have a steady place to live Within the past 12 months, did the food you bought not last and you didn't have the money to get more?: I choose not to answer this question Within the past 12 months, did you worry whether your food would run out before you got money to buy more?: Never true Do you have trouble paying for medicines?: No Do you have trouble getting transportation to medical appointments?: No Do you have trouble paying your heating and electricity bill?: I choose not to answer this question Do you have trouble taking care of your child, family member or friend?: I choose not to answer this question Do you have trouble with day-to-day activities such as bathing, preparing meals, shopping, managing finances, etc.?: No Are you currently unemployed and looking for a job?: I choose not to answer this question Are you interested in more education?: I choose not to answer this question Please select the resources that you would like help with: None Currently or been in a relationship where the following occur: I choose not to answer THRIVE Score: 0 AUDIT C Alcohol Use Questionnaire (AUDIT-C) 1. How often do you have a drink containing alcohol?: 2-3 times a week 2. How many drinks containing alcohol do you have on a typical day when you are drinking?: 1 or 2 3. How often do you have six or more drinks on one occasion?: Weekly Total Score: 6 Score Reviewed/Action Taken: Yes CLAUDIA-7 AMB Questionnaire CLAUDIA-7 Date CLAUDIA - 7 assessed: 03/08/25 Feeling nervous, anxious, or on edge: 3 = Nearly every day Not being able to stop or control worryin = Several days Worrying too much about different things: 1 = Several days Trouble relaxin = Nearly every day Being so restless that it is hard to sit still: 0 = Not at all Becoming easily annoyed or irritable: 1 = Several days Feeling afraid as if something awful might happen: 1 = Several days Total CLAUDIA-7 score (0-4 normal; 5-9 mild; 10-14 moderate; 15-21 severe): 10 Source: Developed by Drs. Yeyo Atkins, Emilia Georges, Oh Fields and colleagues, with an educational armaan from [employer] CLAUDIA-7 Assessment Billing CLAUDIA-7 Assessment Tool: CLAUDIA-7 Assessment 46093 Physical exam (Primary Care) Vital Signs: Last Vital Signs Temp 98.5 F 03/08/25 14:35 Pulse 88 03/08/25 14:35 Resp 14 03/08/25 14:35 BP 138/86 03/08/25 14:35 Pulse Ox 98 03/08/25 14:35 Oxygen Delivery Method Room Air 03/08/25 14:35 BMI result Body Mass Index 24.4 Tobacco/Smoking Status: Tobacco use Status Tobacco use date assessed 03/08/25 03/08/25 14:38 Patient Tobacco Use Status Never used Tobacco 03/08/25 14:50 e-Cigarette/Vaping Use Never Used 03/08/25 14:50 PHQ-9: PHQ-9 Score PHQ-9: Total score 15 03/08/25 15:11 Depression Screening Interpretation: Positive Depression Screening Follow-up: Existing condition and Follow-up Visit Requested Thrive Assessment: Date of Thrive Assessment Date Thrive assessed 03/08/25 03/08/25 14:50 Currently or been in a relationship where the following occur: I choose not to answer Const Orientation/consciousness: patient oriented x3 HENMT Ears: hearing grossly normal bilaterally Neck Thyroid: Thyroid normal Lymphatic: no lymphadenopathy noted Resp Auscultation: clear to auscultation bilaterally Cardio Rate: regular rate Rhythm: regular rhythm Heart sounds: S1 normal heart sound present and S2 normal heart sound present GI Inspection: Yes normal to inspection Palpation (GI): Soft to palpation and Other GI palpation findings present (nontender, no cva tenderness) Auscultation: normoactive bowel sounds Rectal Exam - Female: deferred Skin General skin exam: no rashes or lesions noted Neuro General: patient oriented x3, gait normal and no focal motor deficits Coding Level of Care Code New Pt Level 4 (05114) Complex EM visit Add On G2211 Diagnoses Cubital tunnel syndrome on left G56.22 Chronic periscapular pain M25.519; G89.29 HTN (hypertension) I10 Anxiety with depression F41.8 Additional Codes CLAUDIA-7 Assessment Billing - CLAUDIA-7 Assessment Tool: CLAUDIA-7 Assessment 42808 ([id number]) PHQ-9 - 47324 - PHQ-9 Billing: Yes ([id number]) Assessment & Plan Assessment & Plan (1) Cubital tunnel syndrome on left: Code(s): G56.22 - Lesion of ulnar nerve, left upper limb Category: Medical Plan: Referral to hand surgery She is already in a splint. Advised to continue with this. (2) Chronic periscapular pain: Code(s): M25.519 - Pain in unspecified shoulder; G89.29 - Other chronic pain Category: Medical Plan: We will try Celebrex and a muscle relaxer as needed. Referral to ortho (3) HTN (hypertension): Code(s): I10 - Essential (primary) hypertension Category: Medical Plan: We will start lisinopril. Discussed risks and benefits and adverse effects of this medication. Short term follow up and labs advised (4) Anxiety with depression: Code(s): F41.8 - Other specified anxiety disorders Category: Medical Plan: Believes this has more situational right now. We will follow up short term. Orders: Orders Complete Blood Count Auto Diff 03/08/25 G56.22 - Lesion of ulnar nerve, left upper limb, G89.29 - Other chronic pain, I10 - Essential (primary) hypertension, M25.519 - Pain in unspecified shoulder Comprehensive [place]. Panel Fast 03/08/25 G56.22 - Lesion of ulnar nerve, left upper limb, G89.29 - Other chronic pain, I10 - Essential (primary) hypertension, M25.519 - Pain in unspecified shoulder Lipid Panel 03/08/25 G56.22 - Lesion of ulnar nerve, left upper limb, G89.29 - Other chronic pain, I10 - Essential (primary) hypertension, M25.519 - Pain in unspecified shoulder TSH reflex Free T4 03/08/25 G56.22 - Lesion of ulnar nerve, left upper limb, G89.29 - Other chronic pain, I10 - Essential (primary) hypertension, M25.519 - Pain in unspecified shoulder XR DEXA axial skeleton 03/08/25 Z78.0 - Asymptomatic menopausal state UA CC w/rflx Micro + Cult 03/08/25 G56.22 - Lesion of ulnar nerve, left upper limb, G89.29 - Other chronic pain, I10 - Essential (primary) hypertension, M25.519 - Pain in unspecified shoulder, R30.0 - Dysuria Microalbumin, Random (w Creat) 03/08/25 G56.22 - Lesion of ulnar nerve, left upper limb, G89.29 - Other chronic pain, I10 - Essential (primary) hypertension, M25.519 - Pain in unspecified shoulder Referrals Hand Surgery Referral G56.22 - Lesion of ulnar nerve, left upper limb Orthopedics Referral G89.29 - Other chronic pain, M25.511 - Pain in right shoulder, M25.519 - Pain in unspecified shoulder Medications: New lisinopril 10 mg PO DAILY 90 tabs 0RF celecoxib (Celebrex) 200 mg PO BID 180 caps 0RF methocarbamol 500 mg PO BID PRN 60 tabs 4RF muscle spasm 30 days
[2025-03-08 14:35] VITALS: BP 138/86; PULSE 88; RESP 14; TEMP 36.9; O2SAT 98; BMI 24.4
--- OUTSIDE RECORDS SUMMARY | 2025-03-08 18:46 | XMS_ITS | Clinical Summary ---
Author Organization Formerly [facility] Address [address] [place] [address] Care Team Providers Care Finished Carpet Inspector Name Role Phone Traci Castellanos MD Primary Care Provider +1- [phone] Allergies No known active allergies Medications clonazePAM [...] Encounters Date Type Department Care Team Description 02/21/2025 9:15 AM EDT [place] [address] Mena Funez PA Cubital tunnel syndrome on left (Primary Dx); Right carpal tunnel syndrome 02/21/2025 [place] [address] Mandeep Lara MD Cubital tunnel syndrome on left (Primary Dx) 01/16/2025 3:25 PM EDT Ancillary [place] [address] 01/16/2025 3:15 PM EDT Consult Orthopedic [address] [address] Jas Falk MD Scapulothoracic bursitis of right shoulder (Primary Dx); Right shoulder pain, unspecified chronicity; Axillary nerve palsy 12/27/2024 9:00 AM EDT Consult Orthopedic [address] [address] Mandeep Lara MD Right shoulder pain, unspecified [...] 03/05/2023 9:45 AM EDT Plan of Treatment Upcoming Encounters Date Type Department Care Team (Late st Contact Info) Description 03/23/2025 9:30 AM EDT Office Visit Orthopedic [address] [address] Jas Falk MD [address] [place] [id number] Health Maintenance Due Date Last Done Comments Hepatitis C Virus Screening 1967 HIV Screening 1980 DTaP/Tdap/Td Vaccines (1 - Tdap) 1986 Hepatitis B Vaccines (1 of 3 - 19+ 3-dose series) 1986 Pap Smear (Ages 21-65) 1988 Mammogram 2007 Colonoscopy 2012 Pneumococcal Vaccines 50+ (1 of 1 - PCV) 2017 Zoster (Shingles) Vaccine (1 of 2) 2017 Influenza Vaccine 01/12/2025 COVID-19 Vaccine (3 - 2024- season) 2025, 10/08/2020 Procedures Procedure Name Priority Date/Time Associated Diagnosis Comments XR SHOULDER 2+ VIEWS-RIGHT Routine 01/16/2025 3:41 PM EDT Right shoulder pain, unspecified chronicity from Last 3 Months Results * XR Shoulder 2+ views-Right (01/16/2025 3:41 PM EDT) Narrative OAH - 01/16/2025 3:42 PM EDT This exam was performed in office at [facility] and images reviewed by orthopedic provider. Any findings are documented within ambulatory encounter note on date of service. Jas Falk MD IMG DIAGNOSTIC IMAGING ORDERABL ES Final Result OA from Last 3 Months Insurance [employer] Care Teams Finished Carpet Inspector Relationship Specialty Start Date End Date Traci Castellanos MD [address] [place] [address] PCP - General Internal Medicine 03/05/23
== END 2025-03-08 15:20 | disposition home or self-care (01) ==
LOC: HO.HMCFM 14:23
PROVIDERS: PCP Physician Assistant; Visit Provider Physician Assistant
DX: G56.22 Lesion of ulnar nerve, left upper limb (principal); M25.519 Pain in unspecified shoulder; G89.29 Other chronic pain; I10 Essential (primary) hypertension; F41.8 Other specified anxiety disorders

== ENCOUNTER → 2025-03-08 14:22 | Outpatient (BNVA) | payer OTHER, SELFPAY | PROVIDERS: PCP Physician Assistant; Visit Provider Physician Assistant | DX: G56.22 Lesion of ulnar nerve, left upper limb (principal); M25.511 Pain in right shoulder; G89.29 Other chronic pain; I10 Essential (primary) hypertension; F41.8 Other specified anxiety disorders; Z90.710 Acquired absence of both cervix and uterus; Z13.31 Encounter for screening for depression; Z13.39 Encounter for screening examination for other mental health and behavioral disorders | CPT/HCPCS: 96127; 99202 ==

== ENCOUNTER 2025-04-03 10:47 | Outpatient (AMB) | payer OTHER, SELFPAY ==
[2025-04-03 10:52] VITALS: BMI 25.1
--- NOTE | 2025-04-03 10:52 | MHC.OFFVIS ---
Vital Signs 04/03/25 10:52 Height 5 ft 4 in Weight 146 lb BMI 25.1 Intake Visit Reasons: New Patient - Left Cubital Tunnel - EMG Scanned Intake Note: Mechelle 59 yr old right hand dominant female who is unemployed, presents today for a new patient visit for a evaluation for her left hand. States she is having numbness and tingling in her left small and ring finger. Symptoms started to worsen in August. Patient has tried braces in the past with no improvement. Symptoms are constant through out the day. States she was had surgery set up at [facility] but had to cancel due to insurance issues. Allergies No Known Allergies Allergy (Verified 04/03/25 10:56) HPI HPI New Patient - Left Cubital Tunnel - EMG Scanned: Details: Mechelle is a 59 year old right hand dominant woman who presents for a NCS review of her left hand numbness. She complains of numbness in her left ring & small fingers. She says her numbness is constant during the day. Her symptoms began in ~08/2024, and she says she just woke up with her hand numb. She says she was initially set up for a cubital tunnel release at [facility], but this was cancelled due to insurance issues. She would like to discuss surgery. 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 [facility] Medical History (Updated 03/08/25 @ 15:08 by Jennifer Silva PA-C) Malignant tumor of uterus Right shoulder pain Cervical spondylosis Degenerative disc disease, cervical Surgical History History of bunionectomy H/O: hysterectomy History of bilateral salpingo-oophorectomy (BSO) H/O total hysterectomy Family History Mother Hyperlipidemia HTN (hypertension) Father HTN (hypertension) CAD (coronary artery disease) Son HTN (hypertension) Brother HTN (hypertension) Cancer of kidney Maternal Grandfather Cancer of colon Social History Housing: House Alcohol intake: current Patient Tobacco Use Status: Never used Tobacco e-Cigarette/Vaping Use: Never Used Second Hand Smoke Exposure: No service: No Current occupational status: unemployed Cognitive needs: No Hearing needs: No Vision needs: No Review of Systems Const All systems reviewed & are unremarkable except as noted in HPI and below Physical Exam Vital Signs: BMI result Body Mass Index 25.1 Const General: cooperative, healthy appearing and no acute distress Orientation/consciousness: patient oriented x3 HEENT Head: Yes normocephalic and Yes atraumatic Eyes EOM: EOMs intact bilaterally Resp Effort & Inspection: normal respiratory effort and able to speak in complete sentences Cardio Jugular venous distension: no JVD Skin General skin exam: turgor normal Rashes: no rashes Neuro General: patient oriented x3 Extrem Other: Evaluation of Left Upper Extremity: The patient is alert, oriented, and in no acute distress Neuro: Normal in the median nerve distribution. Dense numbness in the small finger & ulnar aspect of the ring finger Pos Froment sign Some intrinsic wasting, particularly the 1st dorsal interosseous Vascular: Cap refill brisk ROM: She can make a fist and extend all her digits No locking or catching Skin: No lacerations or abrasions. General: No Ecchymosis. No Erythema or evidence of infection. Nerve Conduction study: Bilateral IMPRESSION: 1. This is an abnormal study. 2. There is electrodiagnostic evidence for left ulnar neuropathy at the elbow. 3. There is no electrodiagnostic evidence for median neuropathy, brachial plexopathy, or cervical radiculopathy. No ulnar neuropathy on right side. Thank you for your kind referral. Jazmin Mart MD, BRAYAN 02/07/25 Psych Appearance: grossly normal Affect: normal affect Attitude: cooperative Assessment & Plan Assessment & Plan (1) Cubital tunnel syndrome on left: Code(s): G56.22 - Lesion of ulnar nerve, left upper limb Category: Medical Plan Assessment & Plan 1. Left cubital tunnel syndrome With dense numbness and some intrinsic wasting I educated her about this condition I discussed operative and non-operative treatment options The patient would like to proceed with surgery The risks and benefits of operative treatment were discussed with the patient and the patient wishes to proceed with surgery. These risks include, but are not limited to risk of damage to blood vessels, nerves, tendons, infection, recurrence, incomplete relief of preoperative symptoms, persistent pain, possible need for further surgery and the risks associated with regional blocks and anesthesia. I explained the risks of her sensation not returning, but that surgery is important to maintain muscle function and preserve any sensation possible. She expressed understanding The plan is to take the patient to the operating room sometime in the next few weeks for the following procedures: 1. Left cubital tunnel release, under general All of the preoperative paperwork including the consent was reviewed today. All the patient's questions were answered. The patient understands that they will be contacted by our production planner scheduler soon to schedule this procedure She denies Diabetes, blood thinners, asthma, heart, lung, kidney issues Scribed for Jodi Hernandez MD by Sunny Edouard, medical bill processor, on 04/03/25 at 11:10 AM, EST. Coding Level of Care Code New Pt Level 4 (97823) Diagnoses Cubital tunnel syndrome on left G56.22
--- OUTSIDE RECORDS SUMMARY | 2025-04-03 13:14 | XMS_ITS | Clinical Summary ---
Author Organization Formerly [facility] Address [address] [place] [address] Care Team Providers Care Automotive Brake Technician Name Role Phone Traci Castellanos MD Primary Care Provider +1- [phone] Allergies No known active allergies Medications clonazePAM [...] 02/21/2025 9:15 AM ED[place] [address] Mena Funez PA Cubital tunnel syndrome on left (Primary Dx); Right carpal tunnel syndrome 02/21/2025 [place] [address] Mandeep Lara MD Cubital tunnel syndrome on left (Primary Dx) 01/16/2025 3:25 PM EDT [place] [address] 01/16/2025 3:15 PM EDT Consult Orthopedic [address] [address] Jas Falk MD Scapulothoracic bursitis of right shoulder (Primary Dx); Right shoulder pain, unspecified chronicity; Axillary nerve palsy from Last 3 Months Social History Tobacco [...] Care Team (Late st Contact Info) Description 04/06/2025 10:30 AM EDT [facility] [address] [address] Jas Falk MD [address] [place] [id number] Health Maintenance Due Date Last Done Comments [...] Vaccine (3 - 2024- season) 2025, 10/08/2020 RSV Vaccine 50 years and old er and Patients (1 - 1-dose 75+ series) 2042 Procedures Procedure Name Priority Date/Time Associated Diagnosis Comments XR SHOULDER 2+ VIEWS-RIGHT Routine 01/16/2025 3:41 PM EDT Right shoulder pain, unspecified chronicity from Last 3 Months Results * XR Shoulder 2+ views-Right (01/16/2025 3:41 PM EDT) Narrative OAH - 01/16/2025 3:42 PM EDT This exam was performed in office at [facility] and images reviewed by orthopedic provider. Any findings are documented within ambulatory encounter note on date of service. us Jas Falk MD IMG DIAGNOSTIC IMAGING ORDERABL ES Final Result OA from Last 3 Months Insurance [employer] Care Teams Automotive Brake Technician Relationship Specialty Start Date End Date Traci Castellanos MD [address] [place] [address] PCP - General Internal Medicine 03/05/23
== END 2025-04-03 11:20 | disposition home or self-care (01) ==
LOC: HO.HOS 10:49
PROVIDERS: PCP Physician Assistant; Visit Provider Orthopaedic Surgery
DX: G56.22 Lesion of ulnar nerve, left upper limb (principal)
CPT/HCPCS: 99204

== ENCOUNTER → 2025-04-03 10:47 | Outpatient (BNVA) | payer OTHER, SELFPAY | PROVIDERS: PCP Physician Assistant; Visit Provider Orthopaedic Surgery | DX: Z01.818 Encounter for other preprocedural examination (principal); G56.22 Lesion of ulnar nerve, left upper limb | CPT/HCPCS: 99202 ==

== ENCOUNTER 2025-04-11 13:43 | Outpatient (AMB) | payer OTHER, SELFPAY ==
--- OUTSIDE RECORDS SUMMARY | 2025-04-06 10:30 | XMS_ITS | Encounter Summary ---
Author Organization [facility] Address [address] [place] [address] Care Team Providers Care Chief Lock Tender Operator Name Role Phone Traci Castellanos MD Primary Care Provider +1- [phone] Reason for Referral * Diagnostic Imaging (Routine) - Pending Review Specialty Diagnoses / Procedures Referred By Fara riddle Referred To Contact Diagnoses Scapulothoracic bursitis of right shoulder Procedures MRI Shoulder w/o contrast-Right Jas Falk MD [address] [place] [address] Phone: tel: fax: Referral ID Status Reason Start Date Expiration Date V isits Requested Visits Authorized [id number] Pending Review 04/06/2025 04/07/2026 1 1 Reason for Visit * Reason Comments Pain Encounter Details Date Type Department Care Team (Latest Contact Info) Description 04/06/2025 10:30 AM EDT Office Visit [facility] [place] [address] Jas Falk MD [address] [place] [id number] Scapulothoracic bursitis of right shoulder (Primary Dx) Social History Tobacco Use Types Packs/Day Years [...] Progress Notes * Jas Falk MD - 04/06/2025 10:30 AM EDT Images from the original note were not included. [address] [facility] [address] [address] Encounter Date: 04/06/2025 Assessment & Plan 1. Scapulothoracic bursitis of right shoulder - MRI Shoulder w/o contrast-Right; Future - MRI Shoulder w/o contrast-Right Assessment & Plan Right shoulder pain with scapulothoracic bursitis and AC joint crepitus Chronic right shoulder pain with scapulothoracic bursitis and AC joint crepitus. Some improvement post-cortisone injection, unclear if due to injection or Celebrex. Persistent AC joint and scapulothoracic crepitus. No recent physical therapy. No prior MRI. Interested in imaging. - Order MRI of the right shoulder to evaluate rotator cuff, AC joint, and scapulothoracic region. - Provide external referral for MRI at [facility], as insurance covers this location. The patient was informed of their diagnosis [...] clinical time documentation. History of Present Illness: History of Present Illness Mechelle Martínez is a 59 year old female who presents for follow-up after a recent shoulder injection. She received an injection on [facility] for chronic shoulder pain. Initially, she experienced relieffor the first couple of days, likely due to the anesthetic effect. She continues to experience clicking and popping in her shoulder. The clicking occurs after working for about an hour and then getting up. She is unsure if the relief she experienced was due to the injection or the Celebrex prescribed by her new primary care physician. She has a history of physical therapy for her shoulder, which she attended regularly until about a year and a half ago, finding it costly and time-consuming with only temporary relief. She has not had an MRI of the shoulder yet. Recently, she traveled to [place] for a family emergency and noticed a change in her symptoms, with improvement in one area but increased soreness in another, possibly due to different sleeping arrangements or computer positioning. Physical Exam The patient appears to be alert and oriented. Affect is appropriate. Appears healthy in no acute distress. Well-nourished and well-developed. Pulse and respiratory rate are within normal limits. The cervical spine examined for masses, asymmetry, atrophy, range of motion. Spurling's maneuver negative Focused examination of the affected shoulder demonstrates: Physical Exam MUSCULOSKELETAL: Palpable crepitus in the AC joint and scapulothoracic region. Full active, passiveshoulder ROM. Full strength 5/5 with abduction, external rotation. Negative abdominal compression test. Distally sensorimotor function intact. Distal extremity warm and appears well-perfused. Patient Reported Outcomes No data recorded Imaging / Data Review No results found. Results Procedure Procedures Please excuse minor typos and inconsistencies in this note you may find as it was dictated using voice recognition software. Verbal consent obtained from the patient to record the visit for documentation purposes, with an understanding that the recording will be securely processed via software for note generation, revision and inclusion in the medical record. Jas Falk MD Answers submitted by the patient for this visit: Follow Up visit on 04/06/2025 10:30 AM with Jas Falk MD Review of Systems (Submitted on 04/05/2025) Appetite change: No Chills: No Fever: No Weight Change: No Sore throat: No Ringing in the ears: No Trouble swallowing: No Eye redness: No Visual disturbance: No Cough: No Shortness of breath: No Wheezing: No Leg swelling: No Palpitations: No Abdominal pain: No Blood in stool: No Constipation: No Diarrhea: No Nausea: No Vomiting: No Cold intolerance: No Heat intolerance: No Excessive thirst: No Difficulty urinating: No Painful urination: No Flank pain: No Frequent urination: No Blood in urine: No Vaginal bleeding: No Vaginal pain: No Joint pains: No Back pain: No Muscle pains: Yes Rash: No Environmental allergies: Yes Food allergies: No Low immune system: No Dizziness: No Headaches: No Numbness: Yes Seizures: No Fainting: No Tremors: No Swollen glands: No Easy bruising/bleeding: No Behavioral problem: No Nervous/anxious: No Sleep disturbance: Yes documented in this encounter Plan of Treatment Scheduled Orders Name Type Priority Associated Diagnoses Orde r Schedule MRI Shoulder w/o contrast-Right Imaging Routine Scapulothoracic bursitis of right shoulder Expected: 04/06/2025, Expires: 04/06/2026 documented as of this encounter Visit Diagnoses Diagnosis Scapulothoracic bursitis of right shoulder- Primary documented in this encounter Care Teams Chief Lock Tender Operator Relationship Specialty Start Date End Date Traci Castellanos MD [address] [place] [address] PCP - General Internal Medicine 03/05/23 documented as of this encounter
--- NOTE | 2025-04-11 13:50 | MHC.PC.OV ---
Vital Signs 04/11/25 13:55 Height 5 ft 4 in Weight 149 lb 8 oz BMI 25.7 BP 108/76 Blood Pressure Location Rt brachial Position Sitting Respiration 14 Pulse 113 H Pulse Source Pulse Oximeter Temp 98 F Temp Source Oral Pulse Oximetry (%) 97 Oxygen Delivery Method Room Air Intake Visit Reasons: med check Intake Note: Medication follow up. Scheduled for surgery cubital tunnel release May 07. [facility] orthopedics. Registered Travel Nurse Required: No Allergies No Known Allergies Allergy (Verified 04/11/25 13:52) Medication List - Last Reconciled 04/11/25 by Jennifer Silva PA-C celecoxib (Celebrex) 200 mg PO BID lisinopril 10 mg PO DAILY methocarbamol 500 mg PO BID PRN 30 days Tobacco use date assessed: 04/11/25 Dental Screening Dental Screen Date: 03/08/25 HPI med check HPI Details Patient is a 59-year-old female who presents today for a follow up/preop. Has not had labs. She has a significant past medical history of chronic right periscapular pain, anxiety, mild depression, and elevated blood pressure readings CV: Blood pressure today in the office is 108/76. Recently started on lisinopril 10 mg daily. tolerating medication well. No side effects. Denies any chest pain, shortness on breath or palpitations. States that she mows her lawn without any difficulty. She can run up and down flights of stairs without difficulty. She is active. Denies any issues with bleeding in the past or issues with sedation. She was supposed to have labs prior to appointment. Psych: Has a hx of anxiety and depression and states that a lot of it is related to her pain and not being able to work effectively. In 2011 her walked out and that was what started it. She does get clonazepam 0.5 mg tablets refilled every other month. States that 20 tablets usually lasts for 2-3 months. Msk: She has done pt, chiro, cupping, acupuncture and has followed with surgeons. She has left cubital tunnel syndrome. She states she is following with [facility] but they are unable to do any procedures due to her insurance. They request that she go to [place]. She is following with [facility] for the chronic right periscapular pain. In the past she tried methocarbanol which was effective. cymbalta ineffective, gabapentin ineffective, ibuprofen upsets stomach. 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: s/p total hysterectomy- 2020 (hx of cancerous tumor), she states that the covid vaccine caused her frequent bleeding and then she was dx with the tumor Mammo: 2021-declined Bone density: this was ordered Colonoscopy: 2021- due in 2031 [facility] Medical History (Updated 03/08/25 @ 15:08 by Jennifer Silva PA-C) Malignant tumor of uterus Right shoulder pain Cervical spondylosis Degenerative disc disease, cervical Surgical History History of bunionectomy H/O: hysterectomy History of bilateral salpingo-oophorectomy (BSO) H/O total hysterectomy Family History Mother Hyperlipidemia HTN (hypertension) Father HTN (hypertension) CAD (coronary artery disease) Son HTN (hypertension) Brother HTN (hypertension) Cancer of kidney Maternal Grandfather Cancer of colon Social History Housing: House Alcohol intake: current Patient Tobacco Use Status: Never used Tobacco e-Cigarette/Vaping Use: Never Used Second Hand Smoke Exposure: No service: No Current occupational status: unemployed Cognitive needs: No Hearing needs: No Vision needs: No Questionnaire Thrive Questionnaire Date Thrive assessed: 03/08/25 I am a: Patient What is your living situation today?: I have a steady place to live Within the past 12 months, did the food you bought not last and you didn't have the money to get more?: I choose not to answer this question Within the past 12 months, did you worry whether your food would run out before you got money to buy more?: Never true Do you have trouble paying for medicines?: No Do you have trouble getting transportation to medical appointments?: No Do you have trouble paying your heating and electricity bill?: I choose not to answer this question Do you have trouble taking care of your child, family member or friend?: I choose not to answer this question Do you have trouble with day-to-day activities such as bathing, preparing meals, shopping, managing finances, etc.?: No Are you currently unemployed and looking for a job?: I choose not to answer this question Are you interested in more education?: I choose not to answer this question Please select the resources that you would like help with: None Currently or been in a relationship where the following occur: I choose not to answer THRIVE Score: 0 CLAUDIA-7 AMB Questionnaire CLAUDIA-7 Date CLAUDIA - 7 assessed: 03/08/25 Source: Developed by Drs. Yeyo Atkins, Emilia Georges, Oh Fields and colleagues, with an educational armaan from [employer]. Physical exam (Primary Care) Vital Signs: Last Vital Signs Temp 98 F 04/11/25 13:55 Pulse 113 H 04/11/25 13:55 Resp 14 04/11/25 13:55 BP 108/76 04/11/25 13:55 Pulse Ox 97 04/11/25 13:55 Oxygen Delivery Method Room Air 04/11/25 13:55 BMI result Body Mass Index 25.7 Tobacco/Smoking Status: Tobacco use Status Tobacco use date assessed 04/11/25 04/11/25 13:57 Patient Tobacco Use Status Never used Tobacco 04/11/25 13:51 e-Cigarette/Vaping Use Never Used 04/11/25 13:51 Thrive Assessment: Date of Thrive Assessment Date Thrive assessed 03/08/25 04/11/25 13:51 Currently or been in a relationship where the following occur: I choose not to answer Const Orientation/consciousness: patient oriented x3 HENMT Ears: hearing grossly normal bilaterally Neck Thyroid: Thyroid normal Lymphatic: no lymphadenopathy noted Resp Auscultation: clear to auscultation bilaterally Cardio Rate: regular rate Rhythm: regular rhythm Heart sounds: S1 normal heart sound present and S2 normal heart sound present GI Inspection: Yes normal to inspection Palpation (GI): Soft to palpation and Other GI palpation findings present (nontender, no cva tenderness) Auscultation: normoactive bowel sounds Rectal Exam - Female: deferred Skin General skin exam: no rashes or lesions noted Neuro General: patient oriented x3, gait normal and no focal motor deficits Office Procedures EKG Details: EKG today in the office is sinus tach at a rate of 103 beats per minute with nonspecific STT wave abnormalities. No prior study to compare. EKG interpreted myself and Dr. Reyes. [id number], Complete Coding Level of Care Code Est Pt Level 4 (39495) Complex EM visit Add On G2211 Diagnoses Pre-op exam Z01.818 Cubital tunnel syndrome on left G56.22 HTN (hypertension) I10 Anxiety with depression F41.8 CPT Codes EKG - CPT: 09456-[id number], Complete ([id number]) Assessment & Plan Assessment & Plan (1) Pre-op exam: Code(s): Z01.818 - Encounter for other preprocedural examination Plan: advised labs ekg today in office is sinus tach at a rate of 103 bpm. No prior study to compare. Pending labs. We will addend note (2) Cubital tunnel syndrome on left: Code(s): G56.22 - Lesion of ulnar nerve, left upper limb Category: Medical Plan: has surgery scheduled 05/07. (3) HTN (hypertension): Code(s): I10 - Essential (primary) hypertension Category: Medical Plan: wnl today continue current plan reminded to get labs (4) Anxiety with depression: Code(s): F41.8 - Other specified anxiety disorders Category: Medical Plan: Refilled clonazepam to use sparingly as needed. She is aware of the risks associated with this medication including dependence, sedation. Medications: New clonazepam (Klonopin) 0.5 mg PO DAILY PRN 20 tabs 5RF panic attack(s)
[2025-04-11 13:55] VITALS: BP 108/76; PULSE 113; RESP 14; TEMP 36.6; O2SAT 97; BMI 25.7
--- OUTSIDE RECORDS SUMMARY | 2025-04-11 17:31 | XMS_ITS | Clinical Summary ---
Author Organization [facility] Address [address] [place] [address] Care Team Providers Care Od Grinder Operator Name Role Phone Traci Castellanos MD Primary Care Provider +1- [phone] Allergies No known active allergies Medications clonazePAM [...] Encounters Date Type Department Care Team Description 04/06/2025 10:30 AM [place] [address] Jas Falk MD Scapulothoracic bursitis of right shoulder (Primary Dx) 02/21/2025 9:15 AM [place] [address] Mena Funez PA Cubital tunnel syndrome on left (Primary Dx); Right carpal tunnel syndrome 02/21/2025 [place] [address] Mandeep Lara MD Cubital tunnel syndrome on left (Primary Dx) 01/16/2025 3:25 PM EDT Ancillary Procedure [facility] [address] [place] [address] 01/16/2025 3:15 PM EDT [facility] [place] [address] Jas Falk MD Scapulothoracic bursitis of right [...] 2) 2017 Influenza Vaccine 01/12/2025 COVID-19 Vaccine (2024- season) 2025, 10/08/2020 RSV Vaccine 50 years [...] performed in office at [facility] and images reviewed by orthopedic provider. Any findings are documented within ambulatory encounter note on date of service. Jas Falk MD IMG DIAGNOSTIC IMAGING ORDERABL ES Final Result OA from Last 3 Months Insurance [employer] Care Teams Od Grinder Operator Relationship Specialty Start Date End Date Traci Castellanos MD [address] [place] [address] PCP - General Internal Medicine 03/05/23
== END 2025-04-11 14:14 | disposition home or self-care (01) ==
LOC: HO.HMCFM 13:44
PROVIDERS: PCP Physician Assistant; Visit Provider Physician Assistant
DX: Z01.818 Encounter for other preprocedural examination (principal); G56.22 Lesion of ulnar nerve, left upper limb; I10 Essential (primary) hypertension; F41.8 Other specified anxiety disorders

== ENCOUNTER → 2025-04-11 13:43 | Outpatient (BNVA) | payer OTHER, SELFPAY | PROVIDERS: PCP Physician Assistant; Visit Provider Physician Assistant | DX: Z01.818 Encounter for other preprocedural examination (principal); F41.9 Anxiety disorder, unspecified; R03.0 Elevated blood-pressure reading, without diagnosis of hypertension; G56.22 Lesion of ulnar nerve, left upper limb; I10 Essential (primary) hypertension; F41.8 Other specified anxiety disorders | CPT/HCPCS: 93005; 99212 ==

== ENCOUNTER 2025-04-18 10:11 | Outpatient (REF) | payer OTHER, SELFPAY ==
[2025-04-18 11:20] LABS: MANUAL DIFF FLAG NO
[2025-04-18 11:35] LABS: Appearance Urine Cloudy; Glucose Urine UA Negative (Negative); PH 6.0 (5.0-9.0); Specific Gravity - Urine 1.020 (1.005-1.025); UMIC TRIGGER UACC YES
[2025-04-18 11:37] LABS: Hematocrit 40.9 % (37.0-47.0); Hemoglobin 14.1 g/dl (12.0-16.0); Imm Gran Abs Auto 0.05 X10*3/uL (0.00-0.03); Imm Gran Pct Auto 0.4 % (0.0-0.4); Lymphocytes Absolute Auto 2.2 X10*3/uL (1.2-4.9); Mean Corpuscular HGB Conc 34.5 g/dl (31.0-35.0); Mean Corpuscular Hemoglobin 33.2 pg (27.0-33.0); Mean Corpuscular Volume 96.2 fL (80.0-98.0); NRBC Abs Auto 0.000 X10*3/uL (0.0-0.012); NRBC Pct Auto 0.0 /100WBC (0.0-0.2); Platelet Count 423 X10*3/uL (160-400); Red Blood Count 4.25 X10*6/uL (4.20-5.50); White Blood Count 12.0 X10*3/uL (4.8-10.8)
--- OUTSIDE RECORDS SUMMARY | 2025-04-18 11:44 | XMS_ITS | Clinical Summary ---
Author Organization [facility] Address [address] [place] [address] Care Team Providers Care Logistic Manager Name Role Phone Traci Castellanos MD Primary Care Provider +1- [phone] Allergies No known active allergies Medications clonazePAM [...] 04/06/2025 10:30 AM EDT [place] [address] Jas Falk MD Scapulothoracic bursitis of right shoulder (Primary Dx) 02/21/2025 9:15 AM EDT [place] [address] Mena Funez PA Cubital tunnel syndrome on left (Primary Dx); Right carpal tunnel syndrome 02/21/2025 [place] [address] Mandeep Lara MD Cubital tunnel syndrome on left (Primary Dx) 01/16/2025 3:25 PM EDT Ancillary [facility] [address] [place] [address] 01/16/2025 3:15 PM EDT [place] [address] Jas Falk MD Scapulothoracic bursitis of right [...] was performed in office at [facility] and images reviewed by orthopedic provider. Any findings are documented within ambulatory encounter note on date of service. Jas Falk MD IMG DIAGNOSTIC IMAGING ORDERABL ES Final Result OA from Last 3 Months Insurance [employer] Care Teams Logistic Manager Relationship Specialty Start Date End Date Traci Castellanos MD [address] [place] [address] PCP - General Internal Medicine 03/05/23
[2025-04-18 12:15] LABS: Microalbum/Creatinine Ratio Ur 35.4 ug/mg cr (<30)
[2025-04-18 12:23] LABS: Alanine Aminotransferase 48 U/L (0-31); Albumin Level 4.5 g/dL (3.5-5.0); Alkaline Phosphatase 92 U/L (39-117); Anion Gap 11 (12-20); Aspartate Amino Transferase 39 U/L (5-31); Blood Urea Nitrogen 14 mg/dL (9-16); Calcium 9.1 mg/dL (8.4-10.2); Carbon Dioxide 24 mmol/L (22-29); Chloride 107 mmol/L (96-108); Cholesterol 209 mg/dL (<200); Estimated Glomerular Filt Rate > 60; HDL Cholesterol 48 mg/dL (>40); Potassium 3.8 mmol/L (3.3-5.1); Sodium 138 mmol/L (135-145); Total Protein 7.2 g/dL (6.5-8.0); Triglycerides 282 mg/dL (<150)
== END 2025-04-18 10:12 | disposition home or self-care (01) ==
LOC: HO.WFDLDS 10:11
PROVIDERS: Visit Provider Physician Assistant
DX: I10 Essential (primary) hypertension (principal); M25.519 Pain in unspecified shoulder; G89.29 Other chronic pain; G56.22 Lesion of ulnar nerve, left upper limb
CPT/HCPCS: 36415; 80053; 80061; 81001; 82043; 82570; 84443; 85025

== ENCOUNTER 2025-05-07 08:50 | Day surgery (SDC) | payer OTHER, SELFPAY ==
--- NOTE | 2025-05-02 09:47 | HO.ANESPROP2 ---
Documented by User: Chelsea Portillo NP 05/02/25 09:48 HPI - Anesthesia Eval Consult details Narrative: 59yo F for Left Cubital Tunnel Release PMFSH Active Problems Active Problems: All Active Problems Elevated LFTs (Acute) Protein in urine (Acute) Hematuria (Acute) Anxiety with depression (Acute) HTN (hypertension) (Acute) Cubital tunnel syndrome on left (Acute) Cervical radiculopathy (Acute) Cervical spondylosis (Acute) Right shoulder pain (Acute) Degenerative disc disease, cervical (Acute) Chronic periscapular pain (Acute) Muscle spasm (Acute) Past Medical History Medical History Malignant tumor of uterus Right shoulder pain Cervical spondylosis Degenerative disc disease, cervical Family History Family History Mother Hyperlipidemia HTN (hypertension) Father HTN (hypertension) CAD (coronary artery disease) Son HTN (hypertension) Brother HTN (hypertension) Cancer of kidney Maternal Grandfather Cancer of colon Surgical History Surgical History History of bunionectomy H/O: hysterectomy History of bilateral salpingo-oophorectomy (BSO) H/O total hysterectomy Social History Social History Housing: House Are you a primary home care music therapist to a significant other at home: No Do you presently have visiting nurse or other home services: No Alcohol intake: current Patient Tobacco Use Status: Never used Tobacco e-Cigarette/Vaping Use: Never Used Second Hand Smoke Exposure: No Have you been hit, kicked, punched, or otherwise hurt by someone within the past year? If so, by whom?: No Are you DNR?: No Advance Directives: No Advance Directives Information Provided: Yes service: No Current occupational status: unemployed Cognitive needs: No Hearing needs: No Vision needs: No Meds Allergies Allergy/AdvReac Type Severity Reaction Status Date / Time No Known Allergies Allergy Verified 05/07/25 09:20 Exam Pertinent Lab Results Pertinent Lab Results: Laboratory Tests 04/18/25 04/18/25 10:13 10:15 WBC 12.0 H Hgb 14.1 Hct 40.9 Plt Count 423 H Sodium 138 Potassium 3.8 Chloride 107 Carbon Dioxide 24 BUN 14 Creatinine 0.65 Narrative Narrative: EKG 03/2025 ST @ 103 Assessment and Plan Assessment Anesthesia Assessment: Chart Reviewed Documented by User: Zari Mcqueen MD 05/07/25 10:22 PMFSH Past Medical History Medical History Malignant tumor of uterus Right shoulder pain Cervical spondylosis Degenerative disc disease, cervical Family History Family History Mother Hyperlipidemia HTN (hypertension) Father HTN (hypertension) CAD (coronary artery disease) Son HTN (hypertension) Brother HTN (hypertension) Cancer of kidney Maternal Grandfather Cancer of colon Family history of problems with anesthesia: No Surgical History Surgical History History of bunionectomy H/O: hysterectomy History of bilateral salpingo-oophorectomy (BSO) H/O total hysterectomy History of Problems with Anesthesia: No Social History Social History Housing: House Are you a primary home care music therapist to a significant other at home: No Do you presently have visiting nurse or other home services: No Alcohol intake: current Patient Tobacco Use Status: Never used Tobacco e-Cigarette/Vaping Use: Never Used Second Hand Smoke Exposure: No Have you been hit, kicked, punched, or otherwise hurt by someone within the past year? If so, by whom?: No Are you DNR?: No Advance Directives: No Advance Directives Information Provided: Yes service: No Current occupational status: unemployed Cognitive needs: No Hearing needs: No Vision needs: No Meds Allergies Allergy/AdvReac Type Severity Reaction Status Date / Time No Known Allergies Allergy Verified 05/07/25 09:20 Exam Airway Mallampati Class: II TM Dist: >3cm Neck ROM: Full Heart: rrr Lungs: cta Assessment and Plan Assessment Anesthesia Assessment: Anesthesia Plan Discussed Final Anesthetic Review Family History of Problems with Anesthesia: No History of Problems with Anesthesia: No NPO: Yes ASA Class: II Final Preanesthetic Review: No Changes in Pt Med Stat, Meds/Allgs Chart Reviewed, Consent Obtained/Reviewed and Anes Risks/Benef Reviewed Patient Risk: Low Procedure Risk: Low Anesthetic Plan Anesthetic Plan: GA and Agree w/ Assess. and Plan Disposition: Standard PACU
[2025-05-07] VITALS (7 sets, daily range): BP systolic 132–157; BP diastolic 62–90; PULSE 89–99; RESP 14–20; TEMP 36.2–36.8; O2SAT 95–100; BMI 25.9
[2025-05-07] MEDS: Lactated Ringers 1,000 ML 100 ML IVCONT (09:40)
--- NOTE | 2025-05-07 10:34 | MHC.SHP ---
Pre-Procedural Eval Section A - 24 Hr Update-Section A only Date of Service: 05/07/25 The patient is an INPATIENT: No Changes since office visit: No Cold of Flu in the past 2 weeks, No New Medical Problems, No Changes in Medication and No Patient answered all questions The patient has been examined within 24 hours of the surgical procedure. The History & Physical has been completed within 30 days and I have reviewed it.: Yes Section B - Complete if H&P > 30 days Chief Complaint: Lesion of ulnar nerve, left upper limb Allergies: Allergies Allergy/AdvReac Type Severity Reaction Status Date / Time No Known Allergies Allergy Verified 05/07/25 09:20 Plan I have reviewed the history and physical and performed a pertinent physical examination on my patient. No changes have occurred unless specified. Time Spent With Patient Time: Total time managing care of this patient today ____ minutes.
--- NOTE | 2025-05-07 10:35 | P.OP_ITS ---
Operative Note Operative Note Date of Service: 05/07/25 Narrative: Operative Note Narrative: Preop diagnosis: 1. Left Cubital tunnel syndrome Postop diagnosis: Same Procedure: 1. Left Cubital Tunnel Release Surgeon: Jodi Hernandez MD [employer] Aircraft Mechanic: None Anesthesia: General Anesthesia Findings: Aberrant anconeus epitrochlearis muscle, Thickening and fibrosis about the ulnar nerve at the cubital tunnel Implants: none Tourniquet time: 25 minutes EBL: 5.0 ml Specimen: none Drains: None Complications: None Disposition: Brought to the recovery room in stable condition Plan: Follow-up in 10-14 days for wound check, and suture removal Indications: The patient is 60 years old with left cubital tunnel syndrome . The risks and benefits of operative treatment, including but not limited to risk of damage to blood vessels, nerves, tendons, infection, recurrence, persistent pain or numbness, incomplete resolution of preoperative symptoms, or need for further surgery were discussed with the patient and they wished to proceed with surgery. Procedure: Once consent was obtained patient was brought back to the operating suite and placed in the operating table in a supine position. Perioperative antibiotics and anesthesia was administered by the anesthesia team. The limb was prepped and draped in a standard surgical fashion, and a sterile tourniquet applied to the proximal aspect of the left upper extremity. The limb was elevated exsanguinated with Esmarch bandage and the tourniquet inflated to 250 mm of mercury for a total tourniquet time of 25 minutes. A 6 cm gently curved but longitudinally oriented incision was made centered over the cubital tunnel of the left upper extremity. Incision was made through the skin to the subcutaneous tissues using a # 15 Blade. I then dissected down to the level of the medial epicondyle and the cubital tunnel using tenotomy scissors. Care was taken to protect the medial antebrachial cutaneous nerve. The ulnar nerve was identified just posterior to the medial intermuscular sep dayna. An aberrant anconeus epitrochlearis muscle was identified passing through the cubital tunnel. This was released longitudinally under direct visualization. The ulnar nerve was released in a proximal to distal direction using tenotomy in iris scissors while directly visualizing and protecting the ulnar nerve. There was some narrowing of the ulnar nerve where it had passed beneath the anconeus epitrochlearis muscle with some thickening and fibrosis of the nerve just distal to this point. The ulnar nerve was assessed as I passed the elbow through full flexion and extension and was found to remain stable within its groove. At this point the tourniquet was deflated and hemostasis obtained with a brief period of local pressure and bipolar electrocautery. The wound was copiously irrigated with normal saline. The subcutaneous layer was closed with 4-0 Vicryl suture, and the skin edges were reapproximated with 5-0 nylon suture. The wound was infiltrated with some 1% lidocaine with epinephrine for postop pain control and sterile dressings were applied. The patient appears to have tolerated the procedure well and with no complications. All digits were well vascularized at the conclusion of the case.
== END 2025-05-07 12:52 | disposition home or self-care (01) ==
PROVIDERS: PCP Physician Assistant; Visit Provider Orthopaedic Surgery
PROC: (CPT 64718; principal; 2025-05-07 10:40)
DX: G56.22 Lesion of ulnar nerve, left upper limb (principal); R20.0 Anesthesia of skin; R20.2 Paresthesia of skin; M50.30 Other cervical disc degeneration, unspecified cervical region; Z98.890 Other specified postprocedural states; Z56.0 Unemployment, unspecified
CPT/HCPCS: 64718; J0131; J0690; J1100; J1885; J2003; J2004; J2250; J2371; J2405; J2704; J3010

== ENCOUNTER → 2025-05-07 08:50 | Outpatient (BNV) | payer OTHER, SELFPAY | PROVIDERS: PCP Physician Assistant; Visit Provider Orthopaedic Surgery | DX: G56.22 Lesion of ulnar nerve, left upper limb (principal) | CPT/HCPCS: 64718 ==

== ENCOUNTER 2025-05-22 09:27 | Outpatient (AMB) | payer OTHER, SELFPAY ==
[2025-05-22 09:35] VITALS: BMI 25.9
--- NOTE | 2025-05-22 09:35 | A.OFFVIS_ITS ---
Vital Signs 05/22/25 09:35 Height 5 ft 4 in Weight 151 lb BMI 25.9 Intake Visit Reasons: PO LT cubital 05/07/25 AR Intake Note: Mechelle is a 60 year old right hand dominant female who presents today for her first Post-Operative Visit status post Left Cubital Tunnel Release performed by Dr. Hernandez on 05/07/25. Patient reports she continues haing numbness and tingling. She explains some of the symptoms have improved but she has not improved as much as she expected. Patient is not taking any pain medications at this time. Sutures removed and steri strips applied Allergies No Known Allergies Allergy (Verified 05/22/25 09:49) HPI HPI PO LT cubital 05/07/25 AR: Details: Mechelle is a 60 year old right hand dominant female who presents today for her first Post-Operative Visit status post Left Cubital Tunnel Release performed by Dr. Hernandez on 05/07/25. Patient reports she continues haing numbness and tingling. She explains some of the symptoms have improved, such as improved strength and range of motion of the ulnar nerve distribution of the right hand but she has not improved as much as she expected. Patient is not taking any pain medications at this time. Sutures removed and steri strips applied PFSH Medical History Malignant tumor of uterus Right shoulder pain Cervical spondylosis Degenerative disc disease, cervical Surgical History History of bunionectomy H/O: hysterectomy History of bilateral salpingo-oophorectomy (BSO) H/O total hysterectomy Family History Mother Hyperlipidemia HTN (hypertension) Father HTN (hypertension) CAD (coronary artery disease) Son HTN (hypertension) Brother HTN (hypertension) Cancer of kidney Maternal Grandfather Cancer of colon Social History Housing: House Are you a primary senior care provider to a significant other at home: No Do you presently have visiting nurse or other home services: No Alcohol intake: current Patient Tobacco Use Status: Never used Tobacco e-Cigarette/Vaping Use: Never Used Second Hand Smoke Exposure: No service: No Current occupational status: unemployed Cognitive needs: No Hearing needs: No Vision needs: No Physical Exam Vital Signs: BMI result Body Mass Index 25.9 Extrem Other: Neuro: Decreased sensation in the ulnar nerve distribution of the left hand. Normal sensation to all other digits in the left hand today. No thenar or intrinsic wasting. Good APB muscle firing and good finger cross. Vascular: Capillary refill brisk. ROM: Patient can make a fist and extend all their digits. Skin: Well approximated and well healing incision site noted on medial aspect of left elbow No lacerations or abrasions noted. General: No ecchymosis. No erythema or evidence of infection. Assessment & Plan Assessment & Plan (1) Cubital tunnel syndrome on left: Code(s): G56.22 - Lesion of ulnar nerve, left upper limb Category: Medical Plan Status post left cubital tunnel release DOS 05/07/2025 With incomplete symptomatic resolution Patient appears to be recovering fairly well postoperatively Patient is educated about the typical recovery course At this time, patient is educated that it can take up to 9 months for sensation to return postoperatively, but if she did experience dense numbness prior to blandon rgery, which she reports, there is an increased risk of not getting normal sensation back Patient expresses frustration with this and states ?well I wish I had no night before surgery? After hearing this, the patient does seem to be in a hurry to leave the visit, stating ?I need to get home for hospice for my on? Patient is educated on the typical recovery course prior to leaving Follow-up as needed with any acute concerns Coding Level of Care Code Global (42969) Diagnoses Cubital tunnel syndrome on left G56.22
== END 2025-05-22 10:02 | disposition home or self-care (01) ==
LOC: HO.HOS 09:28
PROVIDERS: PCP Physician Assistant
DX: G56.22 Lesion of ulnar nerve, left upper limb (principal)
CPT/HCPCS: 99024

== ENCOUNTER → 2025-05-22 09:27 | Outpatient (BNVA) | payer OTHER, SELFPAY | PROVIDERS: PCP Physician Assistant | DX: Z48.811 Encounter for surgical aftercare following surgery on the nervous system (principal); G56.22 Lesion of ulnar nerve, left upper limb; Z98.890 Other specified postprocedural states | CPT/HCPCS: 99212 ==